=== PATIENT | male | born 1965 | race Caucasian/White ===

== ENCOUNTER 2024-09-22 11:35 | Inpatient (IN) | payer BC, SELFPAY ==
--- NOTE | 2024-09-22 11:53 | ED.GENADULT ---
HPI - General Adult General Chief complaint: Psychiatric Symptoms Stated complaint: Crisis Time Seen by Provider: 09/22/24 12:20 Source: patient Mode of arrival: ambulatory Limitations: no limitations History of Present Illness ED Provider: Ashley Diehl PA-C HPI narrative: Patient is a 59 year old assigned male at with a history of depression and HLD presenting to the emergency department today with increased depression and vague suicidal ideation. Patient states that he has been more depressed lately and has thought of killing himself but doesn't have a plan yet . Patient denies any dizziness, lightheadedness, abdominal pain, nausea, vomiting, fever, chills, blurry vision, double vision, loss of vision, chest pain, difficulty breathing, shortness of breath, back pain, night sweats, pain with urination, increased urinary frequency, increased urinary urgency, blood in his urine or stool, syncope or a near syncopal episode, recent trauma or falls, bowel incontinence, bladder incontinence, or any other complaints at this time. Relieving factors: none Exacerbating factors: none Associated symptoms: denies other symptoms Treatments prior to arrival: none Related Data Home Medications ?Medication ?Instructions ?Recorded ?Confirmed aspirin 81 mg chewable tablet 81 mg PO DAILY 09/22/24 09/22/24 atorvastatin 40 mg tablet 40 mg PO DAILY 09/22/24 09/22/24 clonazepam 0.5 mg tablet 0.5 mg PO BID 09/22/24 09/22/24 clopidogrel 75 mg tablet 75 mg PO DAILY 09/22/24 09/22/24 mirtazapine 15 mg tablet 15 mg PO DIRECTED 09/22/24 09/22/24 sertraline 100 mg tablet 100 mg PO DAILY 09/22/24 09/22/24 Allergies Allergy/AdvReac Type Severity Reaction Status Date / Time No Known Allergies Allergy Verified 09/22/24 11:56 Review of Systems Constitutional: Constitutional: Reports no additional constitutional complaints, Denies chills, Denies fever(s) and Denies night sweats Eyes: Eyes: Reports no additional eye complaints, Denies blurry vision, Denies change in vision, Denies diplopia, Denies eye discharge, Denies loss of vision and Denies eye pain ENT: Denies dizziness Cardiovascular: Cardiovascular: Reports no additional cardiovascular complaints, Denies chest pain, Denies lightheadedness, Denies Loss of Consciousness and Denies dyspnea Respiratory: Respiratory: Reports no additional respiratory complaints and Denies dyspnea Gastrointestinal: Gastrointestinal: Reports no additional gastrointestinal complaints, Denies abdominal pain, Denies melena, Denies hematochezia, Denies change in bowel habits and Denies change in stool character Genitourinary: Genitourinary: Reports no additional male genitourinary complaints, Denies hematuria, Denies oliguria, Denies difficulty urinating, Denies dysuria, Denies urinary frequency, Denies urinary hesitancy, Denies urinary incontinence and Denies urinary urgency Musculoskeletal: Musculoskeletal: Reports no additional musculoskeletal complaints, Denies numbness and Denies tingling Neurologic: Denies dizziness, Denies loss of vision, Denies numbness and Denies tingling Psychiatric: Psychiatric: Reports no additional psychiatric complaints, Reports depression, Denies homicidal ideation and Reports suicidal ideation Endocrine: Endocrine: Reports no additional endocrine complaints Hematologic/Lymphatic: Hematologic/Lymphatic: Reports no additional hematologic/lymphatic complaints Allergic/Immunologic: Allergic/Immunologic: Reports no additional allergic/immunologic complaints PMFSH Past Medical History Attestation statement: The following information was validated with the patient. Source: old records reviewed and nursing notes reviewed Social History Social History Smoked in Last 30 Days: No Use of substances other than those prescribed or required for medical reasons: Yes Substance Use Type: Marijuana Advance Directives: No Advance Directives Information Provided: Yes Do you have a plan to hurt others: No Plan Physical Exam ED Vital Signs: Vital Signs - 24 hr 09/22/24 11:54 09/22/24 12:24 09/22/24 14:15 Temperature 98 F 98.7 F 98.2 F Pulse Rate 87 77 77 Respiratory Rate 19 14 16 Blood Pressure 137/87 126/81 132/74 Pulse Oximetry 98 99 99 Oxygen Delivery Method Room Air Room Air Room Air BMI result Body Mass Index 23.7 Const General: cooperative, no acute distress, alert and awake Nutritional Appearance: well nourished Orientation/consciousness: patient oriented x3 Limitations: no limitations HENMT Head: Yes normal to inspection and Yes atraumatic Ears: hearing grossly normal bilaterally and external ears normal General nose exam: Normal external nose present, no nasal discharge noted and no epistaxis Face and sinus: Yes normal facial exam, No abrasion and No laceration Mouth: Normal oral and palatal mucosa present, no drooling and no muffled voice Eyes General: appearance normal, both eyes and all related structures Periorbital: periorbital findings normal Eyelids: Yes eyelids normal Conjunctivae: conjunctivae normal Pupils: Equal, round and reactive pupils present EOM: EOMs intact bilaterally Neck Neck: Yes normal visual inspection, Yes full ROM and Yes no lymphadenopathy Chest Chest palpation & inspection: normal inspection of the chest Resp Effort & Inspection: normal respiratory effort and able to speak in complete sentences GI Inspection: Yes normal to inspection Neuro General: patient oriented x3, moves all extremities and CN's II-XI intact bilaterally Cranial nerves: Yes Equal, round and reactive pupils present Cognition (Neuro): normal cognition Extrem General: Yes normal to inspection, Yes full ROM and Yes capillary refill normal Psych Appearance: grossly normal Mental Status: mental status grossly normal Affect: Sad affect present Attitude: Guarded attititude/behavior present Thought content: Suicidality present Course Course Course Narrative: RME, this is a rapid medical exam performed by Larry Mullen please refer to primary provider for complete H&P- 59 year old male with PMHx significant for previous CVA presents for evaluation of depression with suicidal ideation. Patient reports he has been dealing with a lot and is exhausted. He reports having had thoughts of ending his life. He reports he was hopeless and ?my days are just empty. He reports he went to seek outpatient help for partial hospitalization but ?I had a breakdown in front of them and they felt that I needed a higher level of care. Plan for medical clearance and care team consult Medical Decision Making Medical Decision Making MDM Narrative: Patient is a 59 year old assigned male at with a history of depression and HLD presenting to the emergency department today with increased depression and vague suicidal ideation. Patient's physical exam was as noted in the physical exam portion of this note. Patient's blood work was unremarkable. I explained my physical exam findings as well as all test results to the patient. I answered all questions asked by the patient. Patient was evaluated by the CARE team who recommended inpatient level of psychiatric care. Patient awaiting bed placement or psychiatric admission. Differential Diagnosis Differential Diagnoses: The differential diagnosis associated with the presentation includes Depression Vague SI Admission/Observation Consideration of admission/observation: Escalation of care including admission/observation considered Patient with either be transferred to an appropriate psychiatric facility or admitted here at [facility] for psychiatric inpatient level of care. Consult Healthcare Provider Management of the patient was discussed with: Behavioral Health Provider (spoke to the CARE team as noted in the MDM Rationale portion of this note. ) Lab Data [facility] Lab Attestation statement: I reviewed the patient's lab results. My interpretation of these results are in the MDM Rationale portion of this note. 09/22/24 12:11 09/22/24 12:11 Labs: Lab Results 09/22/24 09/22/24 Range/Units 12:11 12:25 WBC 7.4 (4.8-10.8) X10*3/uL RBC 4.78 (4.60-5.80) X10*6/uL Hgb 16.0 (14.0-18.0) g/dl Hct 43.7 (42.0-52.0) % MCV 91.4 (80.0-98.0) fL MCH 33.5 H (27.0-33.0) pg MCHC 36.6 H (31.0-36.0) g/dl RDW 11.9 (11.0-16.0) % Plt Count 189 (160-400) X10*3/uL MPV 11.0 (9.4-12.4) fL Immature Gran % (Auto) 0.3 (0.0-0.4) % Neut % (Auto) 77.7 H (45-73) % Lymph % (Auto) 14.2 L (20-40) % Rock % (Auto) 7.2 (2-11) % Eos % (Auto) 0.3 (0-4) % Baso % (Auto) 0.3 (0-2) % Lymph # (Auto) 1.1 L (1.2-4.9) X10*3/uL Rock # (Auto) 0.5 (0.1-1.2) X10*3/uL Eos # (Auto) 0.0 (0.0-0.4) X10*3/uL Baso # (Auto) 0.0 (0.0-0.2) X10*3/uL Abs Immat Gran (auto) 0.02 (0.00-0.03) X10*3/uL Absolute Neuts (auto) 5.8 (2.0-8.3) x10*3/uL Absolute Nucleated RBC 0.000 (0.0-0.012) X10*3/uL Nucleated RBC % (auto) 0.0 (0.0-0.2) /100WBC Sodium 140 (135-145) mmol/L Potassium 4.2 (3.3-5.1) mmol/L Chloride 107 (96-108) mmol/L Carbon Dioxide 24 (22-29) mmol/L Anion Gap 13 (12-20) BUN 16 (9-16) mg/dL Creatinine 0.86 (0.5-1.4) mg/dL Estim Creat Clear Calc 104.5 Estimated GFR > 60 Random Glucose 103 (60-115) mg/dL Calcium 9.6 (8.4-10.2) mg/dL Total Bilirubin 0.6 (0.0-1.0) mg/dL AST 26 (5-37) U/L ALT 56 H (0-40) U/L Alkaline Phosphatase 83 (39-117) U/L Total Protein 7.8 (6.5-8.0) g/dL Albumin 4.8 (3.5-5.0) g/dL Urine Color Yellow Urine Appearance Clear Urine pH 8.0 (5.0-9.0) Ur Specific [place] 1.020 (1.005-1.025) Urine Protein Negative (Neg-Trace) mg/dL Urine Glucose (UA) Negative (Negative) mg/dL Urine Ketones Negative (Negative) mg/dL Urine Blood Negative (Negative) Urine Nitrite Negative (Negative) Ur Leukocyte Esterase Negative (Negative) Urine RBC 0-2 (0-2) /HPF Urine WBC 0-5 (0-5) /HPF Ur Squamous Epith Cells 0-2 (0-2) /HPF Urine Bacteria None Seen (None Seen) Hyaline Casts 0-2 (0-2) /LPF Salicylates < 5.0 L (15-30) mg/dL Urine Opiates Screen Not Detected (Not Detect) Ur Buprenorphine Scrn Not Detected (Not Detect) ng/mL Ur Oxycodone Screen Not Detected (Not Detect) ng/mL Urine Methadone Screen Not Detected (Not Detect) ng/mL Urine Fentanyl Screen Not Detected (Not Detect) Acetaminophen < 3 (<30) mcg/mL Ur Barbiturates Screen Not Detected (Not Detect) Ur Phencyclidine Scrn Not Detected (Not Detect) Ur Amphetamines Screen Not Detected (Not Detect) U Benzodiazepines Scrn Not Detected (Not Detect) Urine Cocaine Screen Not Detected (Not Detect) U Marijuana (THC) Screen Not Detected (Not Detect) Ethyl Alcohol < 10 mg/dL Discharge Plan Discharge Clinical Impression: Depression Patient Disposition: Still a Patient Interventions: [place]-Suicide Risk Severity Scale Last Done: 09/22/24 12:13
[2024-09-22 11:54] VITALS: BP 137/87; PULSE 87; RESP 19; TEMP 36.6; O2SAT 98; BMI 23.7
[2024-09-22 12:15] LABS: MANUAL DIFF FLAG NO
[2024-09-22 12:18] LABS: Basophils Percent Auto 0.3 % (0-2); Eosinophils Percent Auto 0.3 % (0-4); Hematocrit 43.7 % (42.0-52.0); Imm Gran Abs Auto 0.02 X10*3/uL (0.00-0.03); Imm Gran Pct Auto 0.3 % (0.0-0.4); Lymphocytes Absolute Auto 1.1 X10*3/uL (1.2-4.9); Lymphocytes Percent Auto 14.2 % (20-40); Mean Corpuscular HGB Conc 36.6 g/dl (31.0-36.0); Mean Corpuscular Hemoglobin 33.5 pg (27.0-33.0); Mean Corpuscular Volume 91.4 fL (80.0-98.0); Monocytes Absolute Auto 0.5 X10*3/uL (0.1-1.2); Monocytes Percent Auto 7.2 % (2-11); Neutrophils Absolute Auto 5.8 x10*3/uL (2.0-8.3); Neutrophils Percent Auto 77.7 % (45-73); Platelet Count 189 X10*3/uL (160-400); Red Blood Count 4.78 X10*6/uL (4.60-5.80); Red Cell Distribution Width 11.9 % (11.0-16.0); White Blood Count 7.4 X10*3/uL (4.8-10.8)
[2024-09-22 12:24] VITALS: BP 126/81; PULSE 77; RESP 14; TEMP 37.1; O2SAT 99
--- NOTE | 2024-09-22 12:27 | PC.NURSE ---
Pt presents to ED with feelings of SI and depression for past few weeks getting worse, pt reporting feeling hopeless, does not have plan in place but reports he is thinking of one. Denies HI. Reporting he was a daily drinker, approx 12 beers a day, last drink approx 35 days ago, no hx of withdrawals/seizures. Alert and oriented, breathing even and unlabored, skin warm and dry. Pt denying pain. Changed over into safety clothing with security, belongings in valarie port floor, labeled. 1:1 sitter.
[2024-09-22 12:31] LABS: Appearance Urine Clear; Color Urine Yellow; Glucose Urine UA Negative (Negative); Leukocyte Esterase Urine Negative (Negative); Nitrite Urine Negative (Negative); Urine Blood Negative (Negative); Urine Ketones Negative (Negative); Urine Protein Negative (Neg-Trace)
[2024-09-22 12:32] LABS: Alanine Aminotransferase 56 U/L (0-40); Albumin Level 4.8 g/dL (3.5-5.0); Alkaline Phosphatase 83 U/L (39-117); Anion Gap 13 (12-20); Aspartate Amino Transferase 26 U/L (5-37); Bilirubin Total 0.6 mg/dL (0.0-1.0); Blood Urea Nitrogen 16 mg/dL (9-16); Calcium 9.6 mg/dL (8.4-10.2); Carbon Dioxide 24 mmol/L (22-29); Chloride 107 mmol/L (96-108); Creatinine Clr Calc Pharmacy 104.5; Estimated Glomerular Filt Rate > 60; Ethanol < 10 mg/dL; Glucose Random 103 mg/dL (60-115); Potassium 4.2 mmol/L (3.3-5.1); Sodium 140 mmol/L (135-145); Total Protein 7.8 g/dL (6.5-8.0)
[2024-09-22 12:36] LABS: Bacteria Urine None Seen (None Seen); Hyaline Casts Urine 0-2 /LPF (0-2); RBC Urine 0-2 /HPF (0-2); Squamous Epithelial Cell Urine 0-2 /HPF (0-2); WBC Urine 0-5 /HPF (0-5)
[2024-09-22 12:39] LABS: Amphetamine Screen Urine Not Detected (Not Detect); Barbiturates, Urine Not Detected (Not Detect); Benzodiazepines Screen Urine Not Detected (Not Detect); Buprenorphine Scr Not Detected (Not Detect); Cannabinoid Screen Urine Not Detected (Not Detect); Cocaine Screen Urine Not Detected (Not Detect); Fentanyl, urine Not Detected (Not Detect); Methadone Screen, Urine Not Detected (Not Detect); Opiate Screen Urine Not Detected (Not Detect); Oxycodone Screen Urine Not Detected (Not Detect); Phencyclidine Screen Urine Not Detected (Not Detect)
[2024-09-22 12:41] LABS: Acetaminophen LAB < 3 mcg/mL (<30); Salicylate < 5.0 mg/dL (15-30)
[2024-09-22 14:15] VITALS: BP 132/74; PULSE 77; RESP 16; TEMP 36.8; O2SAT 99
--- NOTE | 2024-09-22 14:18 | ECG_ITS ---
Test Reason : PSYCH CLEARANCE Blood Pressure : */* mmHG Vent. Rate : 66 BPM Atrial Rate : 66 BPM P-R Int : 198 ms QRS Dur : 112 ms QT Int : 410 ms P-R-T Axes : 42 42 45 degrees QTcB Int : 429 ms Normal sinus rhythm Nonspecific T wave abnormality Borderline ECG No previous ECGs available Referred By: Chelle Floyd Electronically Signed By: BRAYDEN MORTON
--- NOTE | 2024-09-22 14:27 | PC.NURSE ---
Med rec done by this RN using patient information and pharmacy.
--- NOTE | 2024-09-22 14:41 | MHC.CARE ---
Patient will be ADULT IPLOC. Section 12a placed in chart for safety.
--- NOTE | 2024-09-22 16:14 | PC.NURSE ---
pt reports frustrations with being here in the pod, particularly with being next to a rowdy patient. He reports that he feels that he does not understand the process of being here and feels anxious and unprepared. This RN validated his feelings, he is speaking with CARE team at this time
--- NOTE | 2024-09-22 17:30 | PHA.MEDREC ---
Pharmacy Consult ? Medication Reconciliation Pharmacy reviewed med rec done by nursing. Spoke with patient and he confirmed his medications. The patient stated he is not taking the Mirtazapine 15mg tab and stated he took 1/2 tab on the first day and had a bad reaction to it while he was sleeping and decided to stop taking it after that dose. He confirmed as well that his Sertraline got increased from 50mg to 100mg in the last week by his Dr. He confirmed he took all his medications yesterday morning before coming in.
--- NOTE | 2024-09-22 18:13 | PC.ADMIT ---
Pt arrived on the unit at 1716 from [facility]. Pt was walked over from [facility] where he stated he was unable to complete his entrance interview . Pt denies any psych admissions, reports not smoking for 9 years, no ETOH for 6 weeks. Pt reports increase in depression and anxiety lately that has led to his inability to function. Initially during admission pt was overwhelmed and having a hard time answering questions. He would state Well.. or You see.. and appear to be thinking about his answer, but the answer would never come. As pt became more comfortable on the unit he was able to provide more information. It appears pt was having PCP try to med manage, did not see improved mood and recently began working with a psychiatrist. Pt feels he is getting different messages from both about what meds he should be taking and wants someone to figure it out for him. Pt reports poor appetite lately as his anxiety makes him nauseous. Pt is excited to get this started . Pt is a CV.
[2024-09-22 19:48] VITALS: BP 142/85; PULSE 81; RESP 16; TEMP 36.9; O2SAT 98
[2024-09-22] MEDS: clonazePAM 0.5 MG TABLET PO (23:06)
[2024-09-23 07:54] LABS: Estimated Average Glucose 108 mg/dL; Hemoglobin A1C 134.5093 umol/L; Hemoglobin A1c % 5.4 % (<6.0)
[2024-09-23 08:00] VITALS: BP 137/84; PULSE 76; RESP 18; TEMP 36.9; O2SAT 98
[2024-09-23 08:09] LABS: Cholesterol 111 mg/dL (<200); HDL Cholesterol 44 mg/dL (>40); LDL Cholesterol Calculated 59 mg/dL (<100); Magnesium 2.4 mg/dL (1.6-2.6); Triglycerides 42 mg/dL (<150)
[2024-09-23] MEDS: Clopidogrel Bisulfate 75 MG TABLET PO (08:10)
[2024-09-23] MEDS: Sertraline HCL 100 MG TABLET PO (08:11)
[2024-09-23] MEDS: Atorvastatin Calcium 40 MG TABLET PO (08:11)
[2024-09-23] MEDS: Aspirin 81 MG TAB.CHEW PO (08:11)
[2024-09-23 08:25] LABS: Free T4 (Free Thyroxine) 1.08 ng/dL (0.71-1.85); Thyroid Stimulating Hormone 1.22 uIU/mL (0.32-4.0)
[2024-09-23 08:38] LABS: Folate 12.7 ng/mL (> or = 4.0); Vitamin B12 725 pg/mL (200-900)
--- NOTE | 2024-09-23 10:04 | P.HPPS_ITS ---
[facility] Date of Service: 09/23/24 Chief Complaint: Depression Sources of Information: patient interviewed, chart reviewed and crisis/core team assessment reviewed HPI Subjective Notes: Gonzalez Warning, Conditional Voluntary and 3 Day Narrative: Patient is a 59-year-old male with history of depression, SAD, alcohol use disorder, history of CVA, Peyronie's disease, chronic back pain who presents for worsening depression and anxiety in the face of multiple psychosocial stressors. Patient reports that in May this past election was when anxiety and depression started. Over the subsequent months, he found his anxiety and depression increasing exacerbated by the cold and dark season which is chronic for him. Compounding these issues are chronic Patient endorses increasing diminished interest in things, low energy, poor appetite and losing weight, trouble sleeping... Patient's anxiety also continued to worsen and he became constantly nauseous... Patient had never been on psychiatric medications before but was started on the antidepressants Zoloft titrated to 100 mg but not helpful; tried mirtazapine for 1 day but not helpful; given clonazepam but patient avoided it due to history of alcohol use. Over the past several weeks, patient's depression worsened and this past week he started thinking that life was not worth living, and though no plans or intent, started becoming desperately hopeless that he would be able to get better. Patient went to an intake for the partial program, expressed suicidal sentiment and was referred to inpatient admission. Patient denies any history of manic episodes or behaviors; history of [id number] bouts of depression, mostly sublinical; denies history of trauma; no AVH. No other history of suicidality. Patient has a long history of on and off alcohol abuse, drinking about 12 beers a day for few months and then being sober for few months; for the past few weeks he has only been drinking 4 beers a day. No other drug abuse history other than cannabis. 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 Lives in a condo by himself Has supportive brothers Substance History: History of alcoholism; will alternate between drink 12 beers a day for few months and then be sober for few months Trauma History: Denies Diagnostics Vital Signs (24Hr): Vital Signs - 24 hr 09/22/24 11:54 09/22/24 12:24 09/22/24 14:15 Temperature 98 F 98.7 F 98.2 F Pulse Rate 87 77 77 Respiratory Rate 19 14 16 Blood Pressure 137/87 126/81 132/74 Pulse Oximetry 98 99 99 Oxygen Delivery Method Room Air Room Air Room Air 09/22/24 19:48 09/23/24 08:00 Temperature 98.5 F 98.5 F Pulse Rate 81 76 Respiratory Rate 16 18 Blood Pressure 142/85 H 137/84 Pulse Oximetry 98 98 Oxygen Delivery Method Room Air Room Air BMI result Body Mass Index 23.7 Labs 09/22/24 12:11 09/22/24 12:11 Labs: Laboratory Results - last 48 hr 09/22/24 09/22/24 09/23/24 12:11 12:25 07:31 WBC 7.4 RBC 4.78 Hgb 16.0 Hct 43.7 MCV 91.4 MCH 33.5 H MCHC 36.6 H RDW 11.9 Plt Count 189 MPV 11.0 Immature Gran % (Auto) 0.3 Neut % (Auto) 77.7 H Lymph % (Auto) 14.2 L [place] % (Auto) 7.2 Eos % (Auto) 0.3 Baso % (Auto) 0.3 Lymph # (Auto) 1.1 L [place] # (Auto) 0.5 Eos # (Auto) 0.0 Baso # (Auto) 0.0 Abs Immat Gran (auto) 0.02 Absolute Neuts (auto) 5.8 Absolute Nucleated RBC 0.000 Nucleated RBC % (auto) 0.0 Sodium 140 Potassium 4.2 Chloride 107 Carbon Dioxide 24 Anion Gap 13 BUN 16 Creatinine 0.86 Estim Creat Clear Calc 104.5 Estimated GFR > 60 Random Glucose 103 Estimat Average Glucose 108 Hemoglobin A1c % 5.4 Calcium 9.6 Magnesium 2.4 Total Bilirubin 0.6 AST 26 ALT 56 H Alkaline Phosphatase 83 Total Protein 7.8 Albumin 4.8 Triglycerides 42 Cholesterol 111 LDL Cholesterol, Calc 59 HDL Cholesterol 44 Vitamin B12 725 Folate 12.7 TSH 1.22 Free T4 1.08 Urine Color Yellow Urine Appearance Clear Urine pH 8.0 Ur Specific [place] 1.020 Urine Protein Negative Urine Glucose (UA) Negative Urine Ketones Negative Urine Blood Negative Urine Nitrite Negative Ur Leukocyte Esterase Negative Urine RBC 0-2 Urine WBC 0-5 Ur Squamous Epith Cells 0-2 Urine Bacteria None Seen Hyaline Casts 0-2 Salicylates < 5.0 L Urine Opiates Screen Not Detected Ur Buprenorphine Scrn Not Detected Ur Oxycodone Screen Not Detected Urine Methadone Screen Not Detected Urine Fentanyl Screen Not Detected Acetaminophen < 3 Ur Barbiturates Screen Not Detected Ur Phencyclidine Scrn Not Detected Ur Amphetamines Screen Not Detected U Benzodiazepines Scrn Not Detected Urine Cocaine Screen Not Detected U Marijuana (THC) Screen Not Detected Ethyl Alcohol < 10 Meds/Allergies Meds Home Medications ?Medication ?Instructions ?Recorded ?Confirmed ?Type aspirin 81 mg chewable tablet 81 mg PO DAILY 09/22/24 09/22/24 History atorvastatin 40 mg tablet 40 mg PO DAILY 09/22/24 09/22/24 History clonazepam 0.5 mg tablet 0.5 mg PO BID 09/22/24 09/22/24 History clopidogrel 75 mg tablet 75 mg PO DAILY 09/22/24 09/22/24 History sertraline 100 mg tablet 100 mg PO DAILY 09/22/24 09/22/24 History Allergies Allergies Allergy/AdvReac Type Severity Reaction Status Date / Time No Known Allergies Allergy Verified 09/22/24 11:56 Mental Status Exam Mental Status Exam Narrative: Pt is alert and oriented; behavior is cooperative, polite and calm; patient is not in distress; dressed in casual attire with unkempt hair but adequate hygiene; mood is described as anxious... Depressed and affect congruent, downcast; eye contact appropriate; Speech is normal rate, volume and prosody and not pressured; psychomotor retardation present; thought process is organized and goal directed; Thought content is on dealing with hopeless feelings, tx; otherwise pertinent to relevant topics and without any delusional content, paranoid ideations or grandiosity; denies any SI/HI. Denies AVH and there is no evidence of perceptual disturbance. Patients insight and judgment impaired Assessment & Plan Assessment & Plan (1) MDD (major depressive disorder), recurrent severe, without psychosis: Status: Acute Code(s): F33.2 - Major depressive disorder, recurrent severe without psychotic features (2) Anxiety: Status: Acute Code(s): F41.9 - Anxiety disorder, unspecified (3) Peyronie's disease: Status: Acute Code(s): N48.6 - Induration penis plastica Plan Patient is a 59-year-old male with history of depression, SAD, alcohol use disorder, history of CVA, Peyronie's disease, chronic back pain who presents for worsening depression and anxiety in the face of multiple psychosocial stressors. Patient reports that in May this past election was when anxiety and depression started. Over the subsequent months, he found his anxiety and depression increasing exacerbated by the cold and dark season which is chronic for him. Compounding these issues are chronic Patient endorses increasing diminished interest in things, low energy, poor appetite and losing weight, trouble sleeping... Patient's anxiety also continued to worsen and he became constantly nauseous... Patient had never been on psychiatric medications before but was started on the antidepressants Zoloft titrated to 100 mg but not helpful; tried mirtazapine for 1 day but not helpful; given clonazepam but patient avoided it due to history of alcohol use. Over the past several weeks, patient's depression worsened and this past week he started thinking that life was not worth living, and though no plans or intent, started becoming desperately hopeless that he would be able to get better. Patient went to an intake for the partial program, expressed suicidal sentiment and was referred to inpatient admission. Patient denies any history of manic episodes or behaviors; history of [id number] bouts of depression, mostly sublinical; denies history of trauma; no AVH. No other history of suicidality. Patient has a long history of on and off alcohol abuse, drinking about 12 beers a day for few months and then being sober for few months; for the past few weeks he has only been drinking 4 beers a day. No other drug abuse history other than cannabis. Formulation/clinical reason: Patient has history of moderate MDD and SAD; likely history of alcohol abuse has masked symptoms of both depression and anxiety. Regarding medications, financial writer reviewed risks/side effects of various medications which patient understood and agreed to try. Patient has had no benefit from Zoloft 100 mg; he agrees to increase it to 150 and if still no benefit will try different medication. Patient agrees to doxepin q.h.s. for ongoing insomnia; discussed trazodone as an option however patient has Peyronie's disease and while that does not place him at increased risk for priapism, should the rare side effect of priapism occur it could worsen pre-existing Peyronie's disease; patient understands risks and will consider whether not to try it. Also discussed clonidine for anxiety; he agrees to discontinue clonazepam for now as he has hardly been taking the past several weeks. Plan: CV Q 15 minute checks Increase Zoloft to 150 mg daily Start doxepin 20 mg q.h.s. for insomnia and help with anxiety/depression Start clonidine 0.1 mg q.h.s. for insomnia Add clonidine 0.1 mg q.4 p.r.n. for moderate anxiety Discontinue clonazepam; patient would like to avoid benzodiazepines Patient educated on: diagnosis, medication risk/benefits, substance abuse, therapeutic strategies and medical condition Informed Consent: understands Reason for continued inpatient stay Substantial Risk for: rapid decompensation Statement Statement: I have reviewed the history and physical and performed a pertinent examination on my patient. No changes have occurred unless specified. If the History and Physical was not performed prior to admission, the Hospitalist's service will be consulted for completing the admission physical. Time Spent With Patient Time: Total time managing care of this patient today ____ minutes.
[2024-09-23 10:29] VITALS: BMI 23.7
[2024-09-23 15:19] VITALS: BP 123/84
[2024-09-23] MEDS: cloNIDine HCL 0.1 MG TABLET PO (15:19)
[2024-09-23 20:00] VITALS: BP 107/71; PULSE 81; RESP 16; TEMP 37.1; O2SAT 97
[2024-09-23 22:18] VITALS: BP 139/88; PULSE 92
[2024-09-23] MEDS: Doxepin HCl 10 MG CAPSULE 20 MG PO (22:46)
[2024-09-24 07:55] VITALS: BP 134/88; PULSE 80; RESP 16; TEMP 37.1; O2SAT 99
[2024-09-24] MEDS: Sertraline HCL 50 MG TABLET 150 MG PO (08:49)
[2024-09-24] MEDS: Clopidogrel Bisulfate 75 MG TABLET PO (08:50)
[2024-09-24] MEDS: Atorvastatin Calcium 40 MG TABLET PO (08:50)
[2024-09-24] MEDS: Aspirin 81 MG TAB.CHEW PO (08:50)
--- NOTE | 2024-09-24 10:01 | HO.PSYCHPN ---
Subjective Subjective Date of Service: 09/24/24 Reason For Visit: Depression Interim History: met with patient; discussed with team Anxiety remains, but pt feels maybe less intense...Clonidine also seemed to help as a Prn. Continues with intermittent hopeless thoughts, asking are the problems insurmountable? but pt talking about it....working on trying to not get overwhelmed... regarding sleep, feels Doxepin seemed helpful and slept better if quiet environment, may not have needed help with sleep. Mental Status Exam Mental Status Exam Narrative: Pt is alert and oriented; behavior is cooperative, polite and calm; patient is not in distress; dressed in casual attire with unkempt hair but adequate hygiene; mood is described as anxious....less intense and affect congruent, downcast; eye contact appropriate; Speech is normal rate, volume and prosody and not pressured; psychomotor retardation present; thought process is organized and goal directed; Thought content is on dealing with hopeless feelings, tx; otherwise pertinent to relevant topics and without any delusional content, paranoid ideations or grandiosity; denies any SI/HI. Denies AVH and there is no evidence of perceptual disturbance. Patients insight and judgment impaired Diagnostics Vital Signs (24Hr): Vital Signs - 24 hr 09/23/24 15:19 09/23/24 20:00 09/23/24 22:18 Temperature 98.7 F Pulse Rate 81 92 Respiratory Rate 16 Blood Pressure 123/84 107/71 139/88 Pulse Oximetry 97 Oxygen Delivery Method Room Air 09/24/24 07:55 Temperature 98.7 F Pulse Rate 80 Respiratory Rate 16 Blood Pressure 134/88 Pulse Oximetry 99 Oxygen Delivery Method Room Air BMI result Body Mass Index 23.7 Labs 09/22/24 12:11 09/22/24 12:11 Labs: Laboratory Results - last 48 hr 09/22/24 09/22/24 09/23/24 12:11 12: 07:31 WBC 7.4 RBC 4.78 Hgb 16.0 Hct 43.7 MCV 91.4 MCH 33.5 H MCHC 36.6 H RDW 11.9 Plt Count 189 MPV 11.0 Immature Gran % (Auto) 0.3 Neut % (Auto) 77.7 H Lymph % (Auto) 14.2 L [place] % (Auto) 7.2 Eos % (Auto) 0.3 Baso % (Auto) 0.3 Lymph # (Auto) 1.1 L [place] # (Auto) 0.5 Eos # (Auto) 0.0 Baso # (Auto) 0.0 Abs Immat Gran (auto) 0.02 Absolute Neuts (auto) 5.8 Absolute Nucleated RBC 0.000 Nucleated RBC % (auto) 0.0 Sodium 140 Potassium 4.2 Chloride 107 Carbon Dioxide 24 Anion Gap 13 BUN 16 Creatinine 0.86 Estim Creat Clear Calc 104.5 Estimated GFR > 60 Random Glucose 103 Estimat Average Glucose 108 Hemoglobin A1c % 5.4 Calcium 9.6 Magnesium 2.4 Total Bilirubin 0.6 AST 26 ALT 56 H Alkaline Phosphatase 83 Total Protein 7.8 Albumin 4.8 Triglycerides 42 Cholesterol 111 LDL Cholesterol, Calc 59 HDL Cholesterol 44 Vitamin B12 725 Folate 12.7 TSH 1.22 Free T4 1.08 Urine Color Yellow Urine Appearance Clear Urine pH 8.0 Ur Specific [place] 1.020 Urine Protein Negative Urine Glucose (UA) Negative Urine Ketones Negative Urine Blood Negative Urine Nitrite Negative Ur Leukocyte Esterase Negative Urine RBC 0-2 Urine WBC 0-5 Ur Squamous Epith Cells 0-2 Urine Bacteria None Seen Hyaline Casts 0-2 Salicylates < 5.0 L Urine Opiates Screen Not Detected Ur Buprenorphine Scrn Not Detected Ur Oxycodone Screen Not Detected Urine Methadone Screen Not Detected Urine Fentanyl Screen Not Detected Acetaminophen < 3 Ur Barbiturates Screen Not Detected Ur Phencyclidine Scrn Not Detected Ur Amphetamines Screen Not Detected U Benzodiazepines Scrn Not Detected Urine Cocaine Screen Not Detected U Marijuana (THC) Screen Not Detected Ethyl Alcohol < 10 Medications Medications Current Medications Acetaminophen (Acetaminophen 325 Mg Tablet) 650 mg PO Q6H PRN PRN Reason: Headache/Pain, Scale 1-10 Al Hydroxide/Mg Hydroxide (Magnesium Hydrox/Alum Hydrox 30 Ml Oral.Susp) 30 ml PO Q6H PRN PRN Reason: Heartburn/Nausea Aspirin (Aspirin 81 Mg Tab.Chew) 81 mg PO DAILY [facility] Last Admin: 09/24/24 08:50 Dose: 81 mg Atorvastatin Calcium (Atorvastatin Calcium 40 Mg Tablet) 40 mg PO DAILY [facility] Last Admin: 09/24/24 08:50 Dose: 40 mg Clonidine HCl (Clonidine Hcl 0.1 Mg Tablet) 0.1 mg PO Q4H PRN; Protocol PRN Reason: moderate anxiety Clonidine HCl (Clonidine Hcl 0.1 Mg Tablet) 0.1 mg PO BEDTIME [facility]; Protocol Last Admin: 09/24/24 06:25 Dose: Not Given Clopidogrel Bisulfate (Clopidogrel Bisulfate 75 Mg Tablet) 75 mg PO DAILY [facility] Last Admin: 09/24/24 08:50 Dose: 75 mg Doxepin HCl (Doxepin Hcl 10 Mg Capsule) 20 mg PO BEDTIME [facility] Last Admin: 09/23/24 22:46 Dose: 20 mg Magnesium Hydroxide (Milk Of Magnesia 30 Ml Oral.Susp) 30 ml PO DAILY PRN PRN Reason: Constipation Nicotine Polacrilex (Nicotine Polacrilex 2 Mg Gum) 4 mg BUCCAL Q2H PRN PRN Reason: Nicotine Cravings Ondansetron HCl (Ondansetron Odt 4 Mg Tab.Rapdis) 4 mg TRANSLINGU RQ6H PRN PRN Reason: Nausea Sertraline HCl (Sertraline Hcl 50 Mg Tablet) 150 mg PO DAILY [facility] Last Admin: 09/24/24 08:49 Dose: 150 mg Trazodone HCl (Trazodone Hcl 50 Mg Tablet) 50 mg PO BEDTIME MRX1 PRN PRN Reason: Insomnia Allergies Allergies Allergy/AdvReac Type Severity Reaction Status Date / Time No Known Allergies Allergy Verified 09/22/24 11:56 Assessment & Plan Assessment & Plan (1) MDD (major depressive disorder), recurrent severe, without psychosis: Status: Acute Code(s): F33.2 - Major depressive disorder, recurrent severe without psychotic features (2) Anxiety: Status: Acute Code(s): F41.9 - Anxiety disorder, unspecified (3) Peyronie's disease: Status: Acute Code(s): N48.6 - Induration penis plastica Plan Patient is a 59-year-old male with history of depression, SAD, alcohol use disorder, history of CVA, Peyronie's disease, chronic back pain who presents for worsening depression and anxiety in the face of multiple psychosocial stressors. Patient reports that in May this past election was when anxiety and depression started. Over the subsequent months, he found his anxiety and depression increasing exacerbated by the cold and dark season which is chronic for him. Compounding these issues are chronic Patient endorses increasing diminished interest in things, low energy, poor appetite and losing weight, trouble sleeping... Patient's anxiety also continued to worsen and he became constantly nauseous... Patient had never been on psychiatric medications before but was started on the antidepressants Zoloft titrated to 100 mg but not helpful; tried mirtazapine for 1 day but not helpful; given clonazepam but patient avoided it due to history of alcohol use. Over the past several weeks, patient's depression worsened and this past week he started thinking that life was not worth living, and though no plans or intent, started becoming desperately hopeless that he would be able to get better. Patient went to an intake for the partial program, expressed suicidal sentiment and was referred to inpatient admission. Patient denies any history of manic episodes or behaviors; history of [id number] bouts of depression, mostly sublinical; denies history of trauma; no AVH. No other history of suicidality. Patient has a long history of on and off alcohol abuse, drinking about 12 beers a day for few months and then being sober for few months; for the past few weeks he has only been drinking 4 beers a day. No other drug abuse history other than cannabis. Formulation/clinical reason: Patient has history of moderate MDD and SAD; likely history of alcohol abuse has masked symptoms of both depression and anxiety. Regarding medications, data analyst report writer reviewed risks/side effects of various medications which patient understood and agreed to try. Patient has had no benefit from Zoloft 100 mg; he agrees to increase it to 150 and if still no benefit will try different medication. Patient agrees to doxepin q.h.s. for ongoing insomnia; discussed trazodone as an option however patient has Peyronie's disease and while that does not place him at increased risk for priapism, should the rare side effect of priapism occur it could worsen pre-existing Peyronie's disease; patient understands risks and will consider whether not to try it. Also discussed clonidine for anxiety; he agrees to discontinue clonazepam for now as he has hardly been taking the past several weeks. Hospital course: 09/24 Anxiety remains, but pt feels maybe less intense..Clonidine also seemed to help as a Prn. Continues with intermittent hopeless thoughts, asking are the problems insurmountable? but pt talking about it....working on trying to not get overwhelmed... -regarding sleep, feels Doxepin seemed helpful and slept better; wonders if quiet environment, may not have needed help with sleep aide, however will continue and understands Doxepin also helps with anxiety/depression. Plan: CV Q 15 minute checks Continue Zoloft to 150 mg daily Continue doxepin 20 mg q.h.s. for insomnia and help with anxiety/depression Continue clonidine 0.1 mg q.h.s. for insomnia Continue clonidine 0.1 mg q.4 p.r.n. for moderate anxiety Discontinue clonazepam; patient would like to avoid benzodiazepines Substance abuse treatment and risks discussed with patient who at this time patient declines MAT or help with outpt treatment options including programs; instead patient is choosing to work out sobriety on own (and has been cutting down on his own). Patient educated on: diagnosis, medication risk/benefits and substance abuse Informed Consent: understands Reason for continued inpatient stay Substantial Risk for: rapid decompensation Time Spent With Patient Time: Total time managing care of this patient today ____ minutes.
[2024-09-24 20:00] VITALS: BP 127/75; PULSE 76; TEMP 36.9; O2SAT 99
--- NOTE | 2024-09-24 22:11 | PC.NURSE ---
Patient has declined to take his medications at this time; he states he will take them closer to my bedtime.
[2024-09-24] MEDS: Doxepin HCl 10 MG CAPSULE 20 MG PO (22:15)
[2024-09-25 08:00] VITALS: BP 122/77; PULSE 85; RESP 18; TEMP 37.1; O2SAT 99
[2024-09-25] MEDS: Sertraline HCL 50 MG TABLET 150 MG PO (08:38)
[2024-09-25] MEDS: Atorvastatin Calcium 40 MG TABLET PO (08:38)
[2024-09-25] MEDS: Clopidogrel Bisulfate 75 MG TABLET PO (08:38)
[2024-09-25] MEDS: Aspirin 81 MG TAB.CHEW PO (08:38)
--- NOTE | 2024-09-25 08:48 | P.PNPSI_ITS ---
Subjective Subjective Date of Service: 09/25/24 Reason For Visit: Depression Subjective Notes: Conditional Voluntary Healthcare Proxy: No Guardianship: No Medical Problems Affecting Mental Status: No Interim History: 59 yo restless male pacing halls- unsure what to do with how he is feeling, somewhat disorganized thoughts, ruminative - obsessive- discussed add on atypical anti-psychotic for this with depression- Medication Compliance: Yes Side effects from medications: No Attending Groups: Intermittent Review of Systems Acute medical concerns: No Medical Review of Systems: unchanged Mental Status Exam Mental Status Exam Narrative: some feelings of hopelessness discussed no si today Patient Appearance: Unkempt Patient Orientation: Person, Place, Time and Situation Level of Consciousness: Awake Patient Behavior: Appropriate, Restless and Poor Eye Contact Mood Description: Anxious and Apprehensive Affect Description: Blunted Patient Cognition Impaired: No Ability to Follow Directions: Fair Speech Pattern: Clear Hallucinations: None Delusions: Not Present Thought Process: Distracted and Rumination Thought Content: positive for Obsessional Thoughts, positive for Perseveration and positive for Disorganized (mildly) Depressive Symptoms: Increased Anxiety and Difficulty Concentrating Abnormal Motor Activity Signs and Symptoms: Restlessness Judgement: Fair Diagnostics Vital Signs (24Hr): Vital Signs - 24 hr 09/24/24 20:00 09/25/24 08:00 Temperature 98.4 F 98.7 F Pulse Rate 76 85 Respiratory Rate 18 Blood Pressure 127/75 122/77 Pulse Oximetry 99 99 Oxygen Delivery Method Room Air Room Air BMI result Body Mass Index 23.7 Labs 09/22/24 12:11 09/22/24 12:11 Medications Medications Current Medications Acetaminophen (Acetaminophen 325 Mg Tablet) 650 mg PO Q6H PRN PRN Reason: Headache/Pain, Scale 1-10 Al Hydroxide/Mg Hydroxide (Magnesium Hydrox/Alum Hydrox 30 Ml Oral.Susp) 30 ml PO Q6H PRN PRN Reason: Heartburn/Nausea Aspirin (Aspirin 81 Mg Tab.Chew) 81 mg PO DAILY BREANN Last Admin: 09/25/24 08:38 Dose: 81 mg Atorvastatin Calcium (Atorvastatin Calcium 40 Mg Tablet) 40 mg PO DAILY BREANN Last Admin: 09/25/24 08:38 Dose: 40 mg Clonidine HCl (Clonidine Hcl 0.1 Mg Tablet) 0.1 mg PO Q4H PRN; Protocol PRN Reason: moderate anxiety Clonidine HCl (Clonidine Hcl 0.1 Mg Tablet) 0.1 mg PO BEDTIME [facility]; Protocol Last Admin: 09/24/24 22:15 Dose: Not Given Clopidogrel Bisulfate (Clopidogrel Bisulfate 75 Mg Tablet) 75 mg PO DAILY [facility] Last Admin: 09/25/24 08:38 Dose: 75 mg Doxepin HCl (Doxepin Hcl 10 Mg Capsule) 20 mg PO BEDTIME [facility] Last Admin: 09/24/24 22:15 Dose: 20 mg Magnesium Hydroxide (Milk Of Magnesia 30 Ml Oral.Susp) 30 ml PO DAILY PRN PRN Reason: Constipation Nicotine Polacrilex (Nicotine Polacrilex 2 Mg Gum) 4 mg BUCCAL Q2H PRN PRN Reason: Nicotine Cravings Ondansetron HCl (Ondansetron Odt 4 Mg Tab.Rapdis) 4 mg TRANSLINGU RQ6H PRN PRN Reason: Nausea Sertraline HCl (Sertraline Hcl 50 Mg Tablet) 150 mg PO DAILY [facility] Last Admin: 09/25/24 08:38 Dose: 150 mg Trazodone HCl (Trazodone Hcl 50 Mg Tablet) 50 mg PO BEDTIME MRX1 PRN PRN Reason: Insomnia Allergies Allergies Allergy/AdvReac Type Severity Reaction Status Date / Time No Known Allergies Allergy Verified 09/22/24 11:56 Assessment & Plan Assessment & Plan (1) MDD (major depressive disorder), recurrent severe, without psychosis: Status: Acute Code(s): F33.2 - Major depressive disorder, recurrent severe without psychotic features (2) Anxiety: Status: Acute Code(s): F41.9 - Anxiety disorder, unspecified (3) Peyronie's disease: Status: Acute Code(s): N48.6 - Induration penis plastica Plan Patient is a 59-year-old male with history of depression, SAD, alcohol use disorder, history of CVA, Peyronie's disease, chronic back pain who presents for worsening depression and anxiety in the face of multiple psychosocial stressors. Patient reports that in May this past election was when anxiety and depression started. Over the subsequent months, he found his anxiety and depression increasing exacerbated by the cold and dark season which is chronic for him. Compounding these issues are chronic Patient endorses increasing diminished interest in things, low energy, poor appetite and losing weight, trouble sleeping... Patient's anxiety also continued to worsen and he became constantly nauseous... Patient had never been on psychiatric medications before but was started on the antidepressants Zoloft titrated to 100 mg but not helpful; tried mirtazapine for 1 day but not helpful; given clonazepam but patient avoided it due to history of alcohol use. Over the past several weeks, patient's depression worsened and this past week he started thinking that life was not worth living, and though no plans or intent, started becoming desperately hopeless that he would be able to get better. Patient went to an intake for the partial program, expressed suicidal sentiment and was referred to inpatient admission. Patient denies any history of manic episodes or behaviors; history of [id number] bouts of depression, mostly sublinical; denies history of trauma; no AVH. No other history of suicidality. Patient has a long history of on and off alcohol abuse, drinking about 12 beers a day for few months and then being sober for few months; for the past few weeks he has only been drinking 4 beers a day. No other drug abuse history other than cannabis. Formulation/clinical reason: Patient has history of moderate MDD and SAD; likely history of alcohol abuse has masked symptoms of both depression and anxiety. 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 Patient has had no benefit from Zoloft 100 mg; he agrees to increase it to 150 and if still no benefit will try different medication. Patient agrees to doxepin q.h.s. for ongoing insomnia; discussed trazodone as an option however patient has Peyronie's disease and while that does not place him at increased risk for priapism, should the rare side effect of priapism occur it could worsen pre-existing Peyronie's disease; patient understands risks and will consider whether not to try it. Also discussed clonidine for anxiety; he agrees to discontinue clonazepam for now as he has hardly been taking the past several weeks. Hospital course: 09/24 Anxiety remains, but pt feels maybe less intense..Clonidine also seemed to help as a Prn. Continues with intermittent hopeless thoughts, asking are the problems insurmountable? but pt talking about it....working on trying to not get overwhelmed... -regarding sleep, feels Doxepin seemed helpful and slept better; wonders if quiet environment, may not have needed help with sleep aide, however will continue and understands Doxepin also helps with anxiety/depression. Plan: CV Q 15 minute checks Continue Zoloft to 150 mg daily Continue doxepin 20 mg q.h.s. for insomnia and help with anxiety/depression Continue clonidine 0.1 mg q.h.s. for insomnia Continue clonidine 0.1 mg q.4 p.r.n. for moderate anxiety Discontinue clonazepam; patient would like to avoid benzodiazepines Substance abuse treatment and risks discussed with patient who at this time patient declines MAT or help with outpt treatment options including programs; instead patient is choosing to work out sobriety on own (and has been cutting down on his own). 09/25/24 discussed adjunctive abilify for rumination/depression add on - patient given print out- Patient educated on: diagnosis and medication risk/benefits Informed Consent: understands Reason for continued inpatient stay Substantial Risk for: rapid decompensation Time Spent With Patient Time: Total time managing care of this patient today ____ minutes.
[2024-09-25 13:06] VITALS: BP 125/82
[2024-09-25] MEDS: cloNIDine HCL 0.1 MG TABLET PO (13:06)
[2024-09-25 19:50] VITALS: BP 102/71; PULSE 88; TEMP 36.9; O2SAT 98
[2024-09-25] MEDS: Doxepin HCl 10 MG CAPSULE 20 MG PO (21:15)
[2024-09-25] MEDS: ARIPiprazole 2 MG TABLET PO (21:16)
[2024-09-26 08:35] VITALS: BP 128/82; PULSE 72; RESP 18; TEMP 36.7; O2SAT 98
[2024-09-26] MEDS: Aspirin 81 MG TAB.CHEW PO (08:36)
[2024-09-26] MEDS: Clopidogrel Bisulfate 75 MG TABLET PO (08:36)
[2024-09-26] MEDS: Atorvastatin Calcium 40 MG TABLET PO (08:36)
[2024-09-26] MEDS: Sertraline HCL 50 MG TABLET 150 MG PO (08:36)
--- NOTE | 2024-09-26 12:02 | HO.PSYCHPN ---
Subjective Subjective Date of Service: 09/26/24 Reason For Visit: Depression Subjective Notes: Conditional Voluntary Healthcare Proxy: No Guardianship: No Medical Problems Affecting Mental Status: No Interim History: Nursing reports patient con complaints for her this am, but then when saw me ruminated quite a bit- about meds - and clonidine prn and feeling that ambient sound of electric was too organzied and a bit off- I am wondering if we should dc doxepin- but I know that was dr. Guadarrama's plan so maybe we should just hold off on clonidine which pt is xs ambivalent about. Medication Compliance: Yes Side effects from medications: Yes (more sensitive to sounds? ) Attending Groups: Yes Review of Systems Acute medical concerns: No Medical Review of Systems: changed (as described above ) Mental Status Exam Mental Status Exam Patient Appearance: Unkempt Patient Orientation: Person, Place, Time and Situation Level of Consciousness: Awake Patient Behavior: Anxious Mood Description: Anxious Affect Description: Apprehensive Patient Cognition Impaired: No Ability to Follow Directions: Fair Speech Pattern: Clear Hallucinations: None Thought Process: Rumination Thought Content: positive for Obsessional Thoughts Depressive Symptoms: Increased Anxiety (ongoing) Abnormal Motor Activity Signs and Symptoms: Restlessness Judgement: Fair Diagnostics Vital Signs (24Hr): Vital Signs - 24 hr 09/25/24 13:06 09/25/24 19:50 09/26/24 08:35 Temperature 98.5 F 98.1 F Pulse Rate 88 72 Respiratory Rate 18 Blood Pressure 125/82 102/71 128/82 Pulse Oximetry 98 98 Oxygen Delivery Method Room Air Room Air BMI result Body Mass Index 23.7 Labs 09/22/24 12:11 09/22/24 12:11 Medications Medications Current Medications Acetaminophen (Acetaminophen 325 Mg Tablet) 650 mg PO Q6H PRN PRN Reason: Headache/Pain, Scale 1-10 Al Hydroxide/Mg Hydroxide (Magnesium Hydrox/Alum Hydrox 30 Ml Oral.Susp) 30 ml PO Q6H PRN PRN Reason: Heartburn/Nausea Aripiprazole (Aripiprazole 2 Mg Tablet) 2 mg PO BEDTIME [facility] Last Admin: 09/25/24 21:16 Dose: 2 mg Aspirin (Aspirin 81 Mg Tab.Chew) 81 mg PO DAILY [facility] Last Admin: 09/26/24 08:36 Dose: 81 mg Atorvastatin Calcium (Atorvastatin Calcium 40 Mg Tablet) 40 mg PO DAILY [facility] Last Admin: 09/26/24 08:36 Dose: 40 mg Clonidine HCl (Clonidine Hcl 0.1 Mg Tablet) 0.1 mg PO Q4H PRN; Protocol PRN Reason: moderate anxiety Last Admin: 09/25/24 13:06 Dose: 0.1 mg Clonidine HCl (Clonidine Hcl 0.1 Mg Tablet) 0.1 mg PO BEDTIME BREANN; Protocol Last Admin: 09/25/24 21:19 Dose: Not Given Clopidogrel Bisulfate (Clopidogrel Bisulfate 75 Mg Tablet) 75 mg PO DAILY [facility] Last Admin: 09/26/24 08:36 Dose: 75 mg Doxepin HCl (Doxepin Hcl 10 Mg Capsule) 20 mg PO BEDTIME BREANN Last Admin: 09/25/24 21:15 Dose: 20 mg Hydroxyzine HCl (Hydroxyzine Hcl 10 Mg Tablet) 10 mg PO Q6H PRN PRN Reason: anxiety/restlessness Magnesium Hydroxide (Milk Of Magnesia 30 Ml Oral.Susp) 30 ml PO DAILY PRN PRN Reason: Constipation Nicotine Polacrilex (Nicotine Polacrilex 2 Mg Gum) 4 mg BUCCAL Q2H PRN PRN Reason: Nicotine Cravings Ondansetron HCl (Ondansetron Odt 4 Mg Tab.Rapdis) 4 mg TRANSLINGU RQ6H PRN PRN Reason: Nausea Sertraline HCl (Sertraline Hcl 50 Mg Tablet) 150 mg PO DAILY [facility] Last Admin: 09/26/24 08:36 Dose: 150 mg Trazodone HCl (Trazodone Hcl 50 Mg Tablet) 50 mg PO BEDTIME MRX1 PRN PRN Reason: Insomnia Allergies Allergies Allergy/AdvReac Type Severity Reaction Status Date / Time No Known Allergies Allergy Verified 09/22/24 11:56 Assessment & Plan Assessment & Plan (1) MDD (major depressive disorder), recurrent severe, without psychosis: Status: Acute Code(s): F33.2 - Major depressive disorder, recurrent severe without psychotic features (2) Anxiety: Status: Acute Code(s): F41.9 - Anxiety disorder, unspecified (3) Peyronie's disease: Status: Acute Code(s): N48.6 - Induration penis plastica Plan Patient is a 59-year-old male with history of depression, SAD, alcohol use disorder, history of CVA, Peyronie's disease, chronic back pain who presents for worsening depression and anxiety in the face of multiple psychosocial stressors. Patient reports that in May this past election was when anxiety and depression started. Over the subsequent months, he found his anxiety and depression increasing exacerbated by the cold and dark season which is chronic for him. Compounding these issues are chronic Patient endorses increasing diminished interest in things, low energy, poor appetite and losing weight, trouble sleeping... Patient's anxiety also continued to worsen and he became constantly nauseous... Patient had never been on psychiatric medications before but was started on the antidepressants Zoloft titrated to 100 mg but not helpful; tried mirtazapine for 1 day but not helpful; given clonazepam but patient avoided it due to history of alcohol use. Over the past several weeks, patient's depression worsened and this past week he started thinking that life was not worth living, and though no plans or intent, started becoming desperately hopeless that he would be able to get better. Patient went to an intake for the partial program, expressed suicidal sentiment and was referred to inpatient admission. Patient denies any history of manic episodes or behaviors; history of [id number] bouts of depression, mostly sublinical; denies history of trauma; no AVH. No other history of suicidality. Patient has a long history of on and off alcohol abuse, drinking about 12 beers a day for few months and then being sober for few months; for the past few weeks he has only been drinking 4 beers a day. No other drug abuse history other than cannabis. Formulation/clinical reason: Patient has history of moderate MDD and SAD; likely history of alcohol abuse has masked symptoms of both depression and anxiety. 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 Patient has had no benefit from Zoloft 100 mg; he agrees to increase it to 150 and if still no benefit will try different medication. Patient agrees to doxepin q.h.s. for ongoing insomnia; discussed trazodone as an option however patient has Peyronie's disease and while that does not place him at increased risk for priapism, should the rare side effect of priapism occur it could worsen pre-existing Peyronie's disease; patient understands risks and will consider whether not to try it. Also discussed clonidine for anxiety; he agrees to discontinue clonazepam for now as he has hardly been taking the past several weeks. Hospital course: 09/24 Anxiety remains, but pt feels maybe less intense..Clonidine also seemed to help as a Prn. Continues with intermittent hopeless thoughts, asking are the problems insurmountable? but pt talking about it....working on trying to not get overwhelmed... -regarding sleep, feels Doxepin seemed helpful and slept better; wonders if quiet environment, may not have needed help with sleep aide, however will continue and understands Doxepin also helps with anxiety/depression. Plan: CV Q 15 minute checks Continue Zoloft to 150 mg daily Continue doxepin 20 mg q.h.s. for insomnia and help with anxiety/depression Continue clonidine 0.1 mg q.h.s. for insomnia Continue clonidine 0.1 mg q.4 p.r.n. for moderate anxiety Discontinue clonazepam; patient would like to avoid benzodiazepines Substance abuse treatment and risks discussed with patient who at this time patient declines MAT or help with outpt treatment options including programs; instead patient is choosing to work out sobriety on own (and has been cutting down on his own). 09/25/24 discussed adjunctive abilify for rumination/depression add on - patient given print out- 09/26 more organized tp and anxiety down today- but odd s/e of trouble hearing ambient electric as organized radio sound? - - provider will dc clonidine- but continue doxepin and abilify...and let dr weeks decide on forward course Patient educated on: medication risk/benefits Informed Consent: understands Reason for continued inpatient stay Substantial Risk for: inability to function and rapid decompensation Time Spent With Patient Time: Total time managing care of this patient today ____ minutes.
[2024-09-26 20:00] VITALS: BP 113/74; PULSE 78; RESP 16; TEMP 37.1; O2SAT 98
[2024-09-26] MEDS: Doxepin HCl 10 MG CAPSULE 20 MG PO (21:55)
[2024-09-26] MEDS: ARIPiprazole 2 MG TABLET PO (21:56)
[2024-09-27 07:52] VITALS: BP 120/74; PULSE 74; RESP 16; TEMP 36.2; O2SAT 98
[2024-09-27] MEDS: Atorvastatin Calcium 40 MG TABLET PO (08:10)
[2024-09-27] MEDS: Sertraline HCL 50 MG TABLET 150 MG PO (08:10)
[2024-09-27] MEDS: Aspirin 81 MG TAB.CHEW PO (08:11)
[2024-09-27] MEDS: Clopidogrel Bisulfate 75 MG TABLET PO (08:11)
--- NOTE | 2024-09-27 09:06 | HO.PSYCHPN ---
Subjective Subjective Date of Service: 10/13/24 Reason For Visit: Depression Interim History: Met with patient; discussed with team; reviewed chart pt says he's a little better; talking more freely, thinking anxiety is a little less, perhaps due to abilify 2mg. Trouble sleeping but agrees Clonidine helped so agrees to restart. Since feeling a little better, would like to leave meds as they are for now. Mental Status Exam Mental Status Exam Narrative: Pt is alert and oriented; behavior is cooperative, polite and calm; patient is not in distress; dressed in casual attire with unkempt hair, scruffy; adequate hygiene; mood is described as little better and affect congruent, brighter; eye contact appropriate; Speech is normal rate, volume and prosody and not pressured; less psychomotor retardation present; thought process is organized and goal directed; Thought content is on dealing with hopeless feelings, tx; otherwise pertinent to relevant topics and without any delusional content, paranoid ideations or grandiosity; denies any SI/HI. Denies AVH and there is no evidence of perceptual disturbance. Patients insight and judgment improving. Diagnostics Vital Signs (24Hr): Vital Signs - 24 hr 09/26/24 20:00 09/27/24 07:52 Temperature 98.7 F 97.2 F Pulse Rate 78 74 Respiratory Rate 16 16 Blood Pressure 113/74 120/74 Pulse Oximetry 98 98 Oxygen Delivery Method Room Air Room Air BMI result Body Mass Index 23.7 Labs 09/22/24 12:11 09/22/24 12:11 Medications Medications Current Medications Acetaminophen (Acetaminophen 325 Mg Tablet) 650 mg PO Q6H PRN PRN Reason: Headache/Pain, Scale 1-10 Al Hydroxide/Mg Hydroxide (Magnesium Hydrox/Alum Hydrox 30 Ml Oral.Susp) 30 ml PO Q6H PRN PRN Reason: Heartburn/Nausea Aripiprazole (Aripiprazole 2 Mg Tablet) 2 mg PO BEDTIME [facility] Last Admin: 09/26/24 21:56 Dose: 2 mg Aspirin (Aspirin 81 Mg Tab.Chew) 81 mg PO DAILY [facility] Last Admin: 09/27/24 08:11 Dose: 81 mg Atorvastatin Calcium (Atorvastatin Calcium 40 Mg Tablet) 40 mg PO DAILY [facility] Last Admin: 09/27/24 08:10 Dose: 40 mg Clopidogrel Bisulfate (Clopidogrel Bisulfate 75 Mg Tablet) 75 mg PO DAILY [facility] Last Admin: 09/27/24 08:11 Dose: 75 mg Doxepin HCl (Doxepin Hcl 10 Mg Capsule) 20 mg PO BEDTIME [facility] Last Admin: 09/26/24 21:55 Dose: 20 mg Hydroxyzine HCl (Hydroxyzine Hcl 10 Mg Tablet) 10 mg PO Q6H PRN PRN Reason: anxiety/restlessness Magnesium Hydroxide (Milk Of Magnesia 30 Ml Oral.Susp) 30 ml PO DAILY PRN PRN Reason: Constipation Nicotine Polacrilex (Nicotine Polacrilex 2 Mg Gum) 4 mg BUCCAL Q2H PRN PRN Reason: Nicotine Cravings Ondansetron HCl (Ondansetron Odt 4 Mg Tab.Rapdis) 4 mg TRANSLINGU RQ6H PRN PRN Reason: Nausea Sertraline HCl (Sertraline Hcl 50 Mg Tablet) 150 mg PO DAILY [facility] Last Admin: 09/27/24 08:10 Dose: 150 mg Trazodone HCl (Trazodone Hcl 50 Mg Tablet) 50 mg PO BEDTIME MRX1 PRN PRN Reason: Insomnia Allergies Allergies Allergy/AdvReac Type Severity Reaction Status Date / Time No Known Allergies Allergy Verified 09/22/24 11:56 Assessment & Plan Assessment & Plan (1) MDD (major depressive disorder), recurrent severe, without psychosis: Status: Acute Code(s): F33.2 - Major depressive disorder, recurrent severe without psychotic features (2) Anxiety: Status: Acute Code(s): F41.9 - Anxiety disorder, unspecified (3) Peyronie's disease: Status: Acute Code(s): N48.6 - Induration penis plastica Plan Patient is a 59-year-old male with history of depression, SAD, alcohol use disorder, history of CVA, Peyronie's disease, chronic back pain who presents for worsening depression and anxiety in the face of multiple psychosocial stressors. Patient reports that in May this past election was when anxiety and depression started. Over the subsequent months, he found his anxiety and depression increasing exacerbated by the cold and dark season which is chronic for him. Compounding these issues are chronic Patient endorses increasing diminished interest in things, low energy, poor appetite and losing weight, trouble sleeping... Patient's anxiety also continued to worsen and he became constantly nauseous... Patient had never been on psychiatric medications before but was started on the antidepressants Zoloft titrated to 100 mg but not helpful; tried mirtazapine for 1 day but not helpful; given clonazepam but patient avoided it due to history of alcohol use. Over the past several weeks, patient's depression worsened and this past week he started thinking that life was not worth living, and though no plans or intent, started becoming desperately hopeless that he would be able to get better. Patient went to an intake for the partial program, expressed suicidal sentiment and was referred to inpatient admission. Patient denies any history of manic episodes or behaviors; history of [id number] bouts of depression, mostly sublinical; denies history of trauma; no AVH. No other history of suicidality. Patient has a long history of on and off alcohol abuse, drinking about 12 beers a day for few months and then being sober for few months; for the past few weeks he has only been drinking 4 beers a day. No other drug abuse history other than cannabis. Formulation/clinical reason: Patient has history of moderate MDD and SAD; likely history of alcohol abuse has masked symptoms of both depression and anxiety. 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 Patient has had no benefit from Zoloft 100 mg; he agrees to increase it to 150 and if still no benefit will try different medication. Patient agrees to doxepin q.h.s. for ongoing insomnia; discussed trazodone as an option however patient has Peyronie's disease and while that does not place him at increased risk for priapism, should the rare side effect of priapism occur it could worsen pre-existing Peyronie's disease; patient understands risks and will consider whether not to try it. Also discussed clonidine for anxiety; he agrees to discontinue clonazepam for now as he has hardly been taking the past several weeks. Hospital course: 09/24 Anxiety remains, but pt feels maybe less intense..Clonidine also seemed to help as a Prn. Continues with intermittent hopeless thoughts, asking are the problems insurmountable? but pt talking about it....working on trying to not get overwhelmed... -regarding sleep, feels Doxepin seemed helpful and slept better; wonders if quiet environment, may not have needed help with sleep aide, however will continue and understands Doxepin also helps with anxiety/depression. 09/25/24 discussed adjunctive abilify for rumination/depression add on - patient given print out- 09/26 more organized tp and anxiety down today- but odd s/e of trouble hearing ambient electric as organized radio sound? - - provider will dc clonidine- but continue doxepin and abilify...and let dr weeks decide on forward course 09/27 pt says he's a little better; talking more freely, thinking anxiety is a little less, perhaps due to abilify 2mg. Trouble sleeping but agrees Clonidine helped so agrees to restart. Since feeling a little better, would like to leave meds as they are for now. -sleeping well enough, but groggy next day Plan: CV Q 15 minute checks started on Abilify 2mg qhs Continue Zoloft to 150 mg daily Continue doxepin 20 mg q.h.s. for insomnia and help with anxiety/depression Continue clonidine 0.1 mg q.h.s. for insomnia Continue clonidine 0.1 mg q.4 p.r.n. for moderate anxiety Discontinue clonazepam; patient would like to avoid benzodiazepines Substance abuse treatment and risks discussed with patient who at this time patient declines MAT or help with outpt treatment options including programs; instead patient is choosing to work out sobriety on own (and has been cutting down on his own). Patient educated on: diagnosis, medication risk/benefits and therapeutic strategies Informed Consent: understands Reason for continued inpatient stay Substantial Risk for: rapid decompensation Time Spent With Patient Time: Total time managing care of this patient today ____ minutes.
[2024-09-27 20:00] VITALS: BP 118/75; PULSE 88; TEMP 36.6; O2SAT 97
[2024-09-27] MEDS: ARIPiprazole 2 MG TABLET PO (22:11)
[2024-09-27] MEDS: Doxepin HCl 10 MG CAPSULE 20 MG PO (22:11)
[2024-09-28 08:00] VITALS: BP 129/80; PULSE 75; RESP 18; TEMP 36; O2SAT 98
[2024-09-28] MEDS: Clopidogrel Bisulfate 75 MG TABLET PO (09:01)
[2024-09-28] MEDS: Sertraline HCL 50 MG TABLET 150 MG PO (09:01)
[2024-09-28] MEDS: Atorvastatin Calcium 40 MG TABLET PO (09:01)
[2024-09-28] MEDS: Aspirin 81 MG TAB.CHEW PO (09:01)
--- NOTE | 2024-09-28 10:16 | P.PNPSI_ITS ---
Subjective Subjective Date of Service: 09/28/24 Reason For Visit: Depression Interim History: Met with patient; discussed with team Patient feeling a little better; still anxious but feels he is much more able to cope. Increased optimism. Discussed coping strategies, perspective. Mental Status Exam Mental Status Exam Narrative: Pt is alert and oriented; behavior is cooperative, polite and calm; patient is not in distress; dressed in casual attire with unkempt hair, scruffy; adequate hygiene; mood is described as little better and affect congruent, brighter; eye contact appropriate; Speech is normal rate, volume and prosody and not pressured; less psychomotor retardation present; thought process is organized and goal directed; Thought content is on dealing with hopeless feelings, tx; otherwise pertinent to relevant topics and without any delusional content, paranoid ideations or grandiosity; denies any SI/HI. Denies AVH and there is no evidence of perceptual disturbance. Patients insight and judgment improving, fair Diagnostics Vital Signs (24Hr): Vital Signs - 24 hr 09/27/24 20:00 09/28/24 08:00 Temperature 97.8 F 96.8 F Pulse Rate 88 75 Respiratory Rate 18 Blood Pressure 118/75 129/80 Pulse Oximetry 97 98 Oxygen Delivery Method Room Air Room Air BMI result Body Mass Index 23.7 Labs 09/22/24 12:11 09/22/24 12:11 Medications Medications Current Medications Acetaminophen (Acetaminophen 325 Mg Tablet) 650 mg PO Q6H PRN PRN Reason: Headache/Pain, Scale 1-10 Al Hydroxide/Mg Hydroxide (Magnesium Hydrox/Alum Hydrox 30 Ml Oral.Susp) 30 ml PO Q6H PRN PRN Reason: Heartburn/Nausea Aripiprazole (Aripiprazole 2 Mg Tablet) 2 mg PO BEDTIME [facility] Last Admin: 09/27/24 22:11 Dose: 2 mg Aspirin (Aspirin 81 Mg Tab.Chew) 81 mg PO DAILY [facility] Last Admin: 09/28/24 09:01 Dose: 81 mg Atorvastatin Calcium (Atorvastatin Calcium 40 Mg Tablet) 40 mg PO DAILY [facility] Last Admin: 09/28/24 09:01 Dose: 40 mg Clonidine HCl (Clonidine Hcl 0.1 Mg Tablet) 0.1 mg PO Q4H PRN; Protocol PRN Reason: moderate anxiety Clopidogrel Bisulfate (Clopidogrel Bisulfate 75 Mg Tablet) 75 mg PO DAILY [facility] Last Admin: 09/28/24 09:01 Dose: 75 mg Doxepin HCl (Doxepin Hcl 10 Mg Capsule) 20 mg PO BEDTIME [facility] Last Admin: 09/27/24 22:11 Dose: 20 mg Hydroxyzine HCl (Hydroxyzine Hcl 10 Mg Tablet) 10 mg PO Q6H PRN PRN Reason: anxiety/restlessness Magnesium Hydroxide (Milk Of Magnesia 30 Ml Oral.Susp) 30 ml PO DAILY PRN PRN Reason: Constipation Nicotine Polacrilex (Nicotine Polacrilex 2 Mg Gum) 4 mg BUCCAL Q2H PRN PRN Reason: Nicotine Cravings Ondansetron HCl (Ondansetron Odt 4 Mg Tab.Rapdis) 4 mg TRANSLINGU RQ6H PRN PRN Reason: Nausea Sertraline HCl (Sertraline Hcl 50 Mg Tablet) 150 mg PO DAILY [facility] Last Admin: 09/28/24 09:01 Dose: 150 mg Trazodone HCl (Trazodone Hcl 50 Mg Tablet) 50 mg PO BEDTIME MRX1 PRN PRN Reason: Insomnia Allergies Allergies Allergy/AdvReac Type Severity Reaction Status Date / Time No Known Allergies Allergy Verified 09/22/24 11:56 Assessment & Plan Assessment & Plan (1) MDD (major depressive disorder), recurrent severe, without psychosis: Status: Acute Code(s): F33.2 - Major depressive disorder, recurrent severe without psychotic features (2) Anxiety: Status: Acute Code(s): F41.9 - Anxiety disorder, unspecified (3) Peyronie's disease: Status: Acute Code(s): N48.6 - Induration penis plastica Plan Patient is a 59-year-old male with history of depression, SAD, alcohol use disorder, history of CVA, Peyronie's disease, chronic back pain who presents for worsening depression and anxiety in the face of multiple psychosocial stressors. Patient reports that in May this past election was when anxiety and depression started. Over the subsequent months, he found his anxiety and depression increasing exacerbated by the cold and dark season which is chronic for him. Compounding these issues are chronic Patient endorses increasing diminished interest in things, low energy, poor appetite and losing weight, trouble sleeping... Patient's anxiety also continued to worsen and he became constantly nauseous... Patient had never been on psychiatric medications before but was started on the antidepressants Zoloft titrated to 100 mg but not helpful; tried mirtazapine for 1 day but not helpful; given clonazepam but patient avoided it due to history of alcohol use. Over the past several weeks, patient's depression worsened and this past week he started thinking that life was not worth living, and though no plans or intent, started becoming desperately hopeless that he would be able to get better. Patient went to an intake for the partial program, expressed suicidal sentiment and was referred to inpatient admission. Patient denies any history of manic episodes or behaviors; history of [id number] bouts of depression, mostly sublinical; denies history of trauma; no AVH. No other history of suicidality. Patient has a long history of on and off alcohol abuse, drinking about 12 beers a day for few months and then being sober for few months; for the past few weeks he has only been drinking 4 beers a day. No other drug abuse history other than cannabis. Formulation/clinical reason: Patient has history of moderate MDD and SAD; likely history of alcohol abuse has masked symptoms of both depression and anxiety. 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 Patient has had no benefit from Zoloft 100 mg; he agrees to increase it to 150 and if still no benefit will try different medication. Patient agrees to doxepin q.h.s. for ongoing insomnia; discussed trazodone as an option however patient has Peyronie's disease and while that does not place him at increased risk for priapism, should the rare side effect of priapism occur it could worsen pre-existing Peyronie's disease; patient understands risks and will consider whether not to try it. Also discussed clonidine for anxiety; he agrees to discontinue clonazepam for now as he has hardly been taking the past several weeks. Hospital course: 09/24 Anxiety remains, but pt feels maybe less intense..Clonidine also seemed to help as a Prn. Continues with intermittent hopeless thoughts, asking are the problems insurmountable? but pt talking about it....working on trying to not get overwhelmed... -regarding sleep, feels Doxepin seemed helpful and slept better; wonders if quiet environment, may not have needed help with sleep aide, however will continue and understands Doxepin also helps with anxiety/depression. 09/25/24 discussed adjunctive abilify for rumination/depression add on - patient given print out- 09/26 more organized tp and anxiety down today- but odd s/e of trouble hearing ambient electric as organized radio sound? - - provider will dc clonidine- but continue doxepin and abilify...and let dr weeks decide on forward course 09/27 pt says he's a little better; talking more freely, thinking anxiety is a little less, perhaps due to abilify 2mg. Trouble sleeping but agrees Clonidine helped so agrees to restart. Since feeling a little better, would like to leave meds as they are for now. -sleeping well enough, but groggy next day 09/28 Patient feeling a little better; still anxious but feels he is much more able to cope. Increased optimism Plan: CV Q 15 minute checks Continue Abilify 2mg qhs Continue Zoloft to 150 mg daily Continue doxepin 20 mg q.h.s. for insomnia and help with anxiety/depression Continue clonidine 0.1 mg q.h.s. for insomnia Continue clonidine 0.1 mg q.4 p.r.n. for moderate anxiety Discontinue clonazepam; patient would like to avoid benzodiazepines Substance abuse treatment and risks discussed with patient who at this time patient declines MAT or help with outpt treatment options including programs; instead patient is choosing to work out sobriety on own (and has been cutting down on his own). Patient educated on: diagnosis, medication risk/benefits and therapeutic strategies Informed Consent: understands Reason for continued inpatient stay Substantial Risk for: stable for discharge and rapid decompensation Time Spent With Patient Time: Total time managing care of this patient today ____ minutes.
[2024-09-28 20:00] VITALS: BP 131/87; PULSE 84; RESP 16; TEMP 36.6; O2SAT 97
[2024-09-28 21:06] VITALS: BP 131/86
[2024-09-28] MEDS: cloNIDine HCL 0.1 MG TABLET PO (21:06)
[2024-09-28] MEDS: ARIPiprazole 2 MG TABLET PO (21:06)
[2024-09-28] MEDS: Doxepin HCl 10 MG CAPSULE 20 MG PO (22:32)
[2024-09-29 08:00] VITALS: BP 133/74; PULSE 81; RESP 18; TEMP 35.8; O2SAT 97
[2024-09-29] MEDS: Atorvastatin Calcium 40 MG TABLET PO (08:18)
[2024-09-29] MEDS: Aspirin 81 MG TAB.CHEW PO (08:18)
[2024-09-29] MEDS: Sertraline HCL 50 MG TABLET 150 MG PO (08:18)
[2024-09-29] MEDS: Clopidogrel Bisulfate 75 MG TABLET PO (08:18)
--- NOTE | 2024-09-29 18:13 | P.PNPSI_ITS ---
Subjective Subjective Date of Service: 09/29/24 Reason For Visit: Depression Interim History: Met with patient; discussed with team Patient continues to say that he is doing a little better. Patient also said that he is sleeping better and not so groggy this next morning. Still anxious about a lot of different things including what will happen when he leaves the hospital. Patient wants to go to partial day program on discharge which he hopes can happen soon. Continued to discuss coping strategies Mental Status Exam Mental Status Exam Narrative: Pt is alert and oriented; behavior is cooperative, polite and calm; patient is not in distress; dressed in casual attire with unkempt hair, scruffy; adequate hygiene; mood is described as better and affect congruent, brighter; eye contact appropriate; Speech is normal rate, volume and prosody and not pressured; no psychomotor retardation present; thought process is organized and goal directed; Thought content is on dealing with hopeless feelings, tx; otherwise pertinent to relevant topics and without any delusional content, paranoid ideations or grandiosity; denies any SI/HI. Denies AVH and there is no evidence of perceptual disturbance. Patients insight and judgment improving, fair Diagnostics Vital Signs (24Hr): Vital Signs - 24 hr 09/28/24 20:00 09/28/24 21:06 09/29/24 08:00 Temperature 97.8 F 96.4 F L Pulse Rate 84 81 Respiratory Rate 16 18 Blood Pressure 131/87 131/86 133/74 Pulse Oximetry 97 97 Oxygen Delivery Method Room Air Room Air BMI result Body Mass Index 23.7 Labs 09/22/24 12:11 09/22/24 12:11 Medications Medications Current Medications Acetaminophen (Acetaminophen 325 Mg Tablet) 650 mg PO Q6H PRN PRN Reason: Headache/Pain, Scale 1-10 Al Hydroxide/Mg Hydroxide (Magnesium Hydrox/Alum Hydrox 30 Ml Oral.Susp) 30 ml PO Q6H PRN PRN Reason: Heartburn/Nausea Aripiprazole (Aripiprazole 2 Mg Tablet) 2 mg PO BEDTIME [facility] Last Admin: 09/28/24 21:06 Dose: 2 mg Aspirin (Aspirin 81 Mg Tab.Chew) 81 mg PO DAILY [facility] Last Admin: 09/29/24 08:18 Dose: 81 mg Atorvastatin Calcium (Atorvastatin Calcium 40 Mg Tablet) 40 mg PO DAILY [facility] Last Admin: 09/29/24 08:18 Dose: 40 mg Clonidine HCl (Clonidine Hcl 0.1 Mg Tablet) 0.1 mg PO Q4H PRN; Protocol PRN Reason: moderate anxiety Clonidine HCl (Clonidine Hcl 0.1 Mg Tablet) 0.1 mg PO BEDTIME [facility]; Protocol Last Admin: 09/28/24 21:06 Dose: 0.1 mg Clopidogrel Bisulfate (Clopidogrel Bisulfate 75 Mg Tablet) 75 mg PO DAILY [facility] Last Admin: 09/29/24 08:18 Dose: 75 mg Doxepin HCl (Doxepin Hcl 10 Mg Capsule) 20 mg PO BEDTIME [facility] Last Admin: 09/28/24 22:32 Dose: 20 mg Hydroxyzine HCl (Hydroxyzine Hcl 10 Mg Tablet) 10 mg PO Q6H PRN PRN Reason: anxiety/restlessness Magnesium Hydroxide (Milk Of Magnesia 30 Ml Oral.Susp) 30 ml PO DAILY PRN PRN Reason: Constipation Nicotine Polacrilex (Nicotine Polacrilex 2 Mg Gum) 4 mg BUCCAL Q2H PRN PRN Reason: Nicotine Cravings Ondansetron HCl (Ondansetron Odt 4 Mg Tab.Rapdis) 4 mg TRANSLINGU RQ6H PRN PRN Reason: Nausea Sertraline HCl (Sertraline Hcl 50 Mg Tablet) 150 mg PO DAILY [facility] Last Admin: 09/29/24 08:18 Dose: 150 mg Sodium Chloride (Sodium Chloride 0.65 % Nasal 44 Ml Sprbtl) 1 spray NOSTRIL-B Q1H PRN PRN Reason: dry nares Trazodone HCl (Trazodone Hcl 50 Mg Tablet) 50 mg PO BEDTIME MRX1 PRN PRN Reason: Insomnia Allergies Allergies Allergy/AdvReac Type Severity Reaction Status Date / Time No Known Allergies Allergy Verified 09/22/24 11:56 Assessment & Plan Assessment & Plan (1) MDD (major depressive disorder), recurrent severe, without psychosis: Status: Acute Code(s): F33.2 - Major depressive disorder, recurrent severe without psychotic features (2) Anxiety: Status: Acute Code(s): F41.9 - Anxiety disorder, unspecified (3) Peyronie's disease: Status: Acute Code(s): N48.6 - Induration penis plastica Plan Patient is a 59-year-old male with history of depression, SAD, alcohol use disorder, history of CVA, Peyronie's disease, chronic back pain who presents for worsening depression and anxiety in the face of multiple psychosocial stressors. Patient reports that in May this past election was when anxiety and depression started. Over the subsequent months, he found his anxiety and depression increasing exacerbated by the cold and dark season which is chronic for him. Compounding these issues are chronic Patient endorses increasing diminished interest in things, low energy, poor appetite and losing weight, trouble sleeping... Patient's anxiety also continued to worsen and he became constantly nauseous... Patient had never been on psychiatric medications before but was started on the antidepressants Zoloft titrated to 100 mg but not helpful; tried mirtazapine for 1 day but not helpful; given clonazepam but patient avoided it due to history of alcohol use. Over the past several weeks, patient's depression worsened and this past week he started thinking that life was not worth living, and though no plans or intent, started becoming desperately hopeless that he would be able to get better. Patient went to an intake for the partial program, expressed suicidal sentiment and was referred to inpatient admission. Patient denies any history of manic episodes or behaviors; history of [id number] bouts of depression, mostly sublinical; denies history of trauma; no AVH. No other history of suicidality. Patient has a long history of on and off alcohol abuse, drinking about 12 beers a day for few months and then being sober for few months; for the past few weeks he has only been drinking 4 beers a day. No other drug abuse history other than cannabis. Formulation/clinical reason: Patient has history of moderate MDD and SAD; likely history of alcohol abuse has masked symptoms of both depression and anxiety. Regarding medications, property underwriter reviewed risks/side effects of various medications which patient understood and agreed to try. Patient has had no benefit from Zoloft 100 mg; he agrees to increase it to 150 and if still no benefit will try different medication. Patient agrees to doxepin q.h.s. for ongoing insomnia; discussed trazodone as an option however patient has Peyronie's disease and while that does not place him at increased risk for priapism, should the rare side effect of priapism occur it could worsen pre-existing Peyronie's disease; patient understands risks and will consider whether not to try it. Also discussed clonidine for anxiety; he agrees to discontinue clonazepam for now as he has hardly been taking the past several weeks. Hospital course: 09/24 Anxiety remains, but pt feels maybe less intense..Clonidine also seemed to help as a Prn. Continues with intermittent hopeless thoughts, asking are the problems insurmountable? but pt talking about it....working on trying to not get overwhelmed... -regarding sleep, feels Doxepin seemed helpful and slept better; wonders if quiet environment, may not have needed help with sleep aide, however will continue and understands Doxepin also helps with anxiety/depression. 09/25/24 discussed adjunctive abilify for rumination/depression add on - patient given print out- 09/26 more organized tp and anxiety down today- but odd s/e of trouble hearing ambient electric as organized radio sound? - - provider will dc clonidine- but continue doxepin and abilify...and let dr weeks decide on forward course 09/27 pt says he's a little better; talking more freely, thinking anxiety is a little less, perhaps due to abilify 2mg. Trouble sleeping but agrees Clonidine helped so agrees to restart. Since feeling a little better, would like to leave meds as they are for now. -sleeping well enough, but groggy next day 09/28 Patient feeling a little better; still anxious but feels he is much more able to cope.? Increased optimism 09/29 continue current treatment plan; clonidine 0.1 mg scheduled q.h.s. with seems to be helping Plan: CV Q 15 minute checks started on Abilify 2mg qhs Continue Zoloft to 150 mg daily Continue doxepin 20 mg q.h.s. for insomnia and help with anxiety/depression Continue clonidine 0.1 mg q.h.s. for insomnia Continue clonidine 0.1 mg q.4 p.r.n. for moderate anxiety Discontinue clonazepam; patient would like to avoid benzodiazepines Substance abuse treatment and risks discussed with patient who at this time patient declines MAT or help with outpt treatment options including programs; instead patient is choosing to work out sobriety on own (and has been cutting down on his own). Patient educated on: diagnosis, medication risk/benefits and therapeutic strategies Informed Consent: understands Reason for continued inpatient stay Substantial Risk for: rapid decompensation Time Spent With Patient Time: Total time managing care of this patient today ____ minutes.
[2024-09-29 20:00] VITALS: BP 124/77; PULSE 88; TEMP 36.8; O2SAT 97
[2024-09-29 20:33] VITALS: BP 124/77
[2024-09-29] MEDS: ARIPiprazole 2 MG TABLET PO (20:33)
[2024-09-29] MEDS: cloNIDine HCL 0.1 MG TABLET PO (20:33)
[2024-09-29] MEDS: Doxepin HCl 10 MG CAPSULE 20 MG PO (21:56)
[2024-09-30] MEDS: traZODone HCL 50 MG TABLET PO (01:52)
[2024-09-30 07:00] VITALS: BMI 24.9
[2024-09-30 08:00] VITALS: BP 120/76; PULSE 71; RESP 16; TEMP 36.9; O2SAT 97
[2024-09-30] MEDS: Sertraline HCL 50 MG TABLET 150 MG PO (08:59)
[2024-09-30] MEDS: Aspirin 81 MG TAB.CHEW PO (08:59)
[2024-09-30] MEDS: Atorvastatin Calcium 40 MG TABLET PO (08:59)
[2024-09-30] MEDS: Clopidogrel Bisulfate 75 MG TABLET PO (08:59)
[2024-09-30] MEDS: Sodium Chloride 0.65 % Nasal 44 ML SPRBTL 1 SPRAY NOSTRIL-B ×2 (09:25→15:31)
[2024-09-30 20:00] VITALS: BP 122/74; PULSE 87; TEMP 36.7; O2SAT 97
[2024-09-30] MEDS: ARIPiprazole 2 MG TABLET PO (20:56)
[2024-09-30 20:57] VITALS: BP 122/74
[2024-09-30] MEDS: cloNIDine HCL 0.1 MG TABLET PO (20:57)
[2024-09-30] MEDS: Doxepin HCl 10 MG CAPSULE 20 MG PO (22:01)
[2024-10-01 08:00] VITALS: BP 122/73; PULSE 74; TEMP 35.7; O2SAT 97
[2024-10-01] MEDS: Sodium Chloride 0.65 % Nasal 44 ML SPRBTL 1 SPRAY NOSTRIL-B (08:48)
[2024-10-01] MEDS: Sertraline HCL 50 MG TABLET 150 MG PO (08:54)
[2024-10-01] MEDS: Atorvastatin Calcium 40 MG TABLET PO (08:55)
[2024-10-01] MEDS: Aspirin 81 MG TAB.CHEW PO (08:55)
[2024-10-01] MEDS: Clopidogrel Bisulfate 75 MG TABLET PO (08:55)
--- NOTE | 2024-10-01 09:22 | HO.PSYCHPN ---
Subjective Subjective Date of Service: 09/30/24 Reason For Visit: Depression Interim History: Late entry note for patient seen on 09/30; discussed with team Patient remains feeling more hopeful, more capable of dealing with his anxiety which is becoming less and less prominent. He says overall it remains significantly lowered and only isolated or specific things seemed to trigger it. Patient still has struggles with sleep and deciding to trazodone Mental Status Exam Mental Status Exam Narrative: Pt is alert and oriented; behavior is cooperative, polite and calm; patient is not in distress; dressed in casual attire with adequate hygiene and grooming; mood is described as ok and affect congruent, brighter; eye contact appropriate; Speech is normal rate, volume and prosody and not pressured; no psychomotor retardation present; thought process is organized and goal directed; Thought content is on dealing with hopeless feelings, tx; otherwise pertinent to relevant topics and without any delusional content, paranoid ideations or grandiosity; denies any SI/HI. Denies AVH and there is no evidence of perceptual disturbance. Patients insight and judgment improving, fair Diagnostics Vital Signs (24Hr): Vital Signs - 24 hr 09/30/24 20:00 09/30/24 20:57 10/01/24 08:00 Temperature 98.0 F 96.2 F L Pulse Rate 87 74 Blood Pressure 122/74 122/74 122/73 Pulse Oximetry 97 97 Oxygen Delivery Method Room Air Room Air BMI result Body Mass Index 24.9 Labs 09/22/24 12:11 09/22/24 12:11 Medications Medications Current Medications Acetaminophen (Acetaminophen 325 Mg Tablet) 650 mg PO Q6H PRN PRN Reason: Headache/Pain, Scale 1-10 Al Hydroxide/Mg Hydroxide (Magnesium Hydrox/Alum Hydrox 30 Ml Oral.Susp) 30 ml PO Q6H PRN PRN Reason: Heartburn/Nausea Aripiprazole (Aripiprazole 2 Mg Tablet) 2 mg PO BEDTIME [facility] Last Admin: 09/30/24 20:56 Dose: 2 mg Aspirin (Aspirin 81 Mg Tab.Chew) 81 mg PO DAILY [facility] Last Admin: 10/01/24 08:55 Dose: 81 mg Atorvastatin Calcium (Atorvastatin Calcium 40 Mg Tablet) 40 mg PO DAILY [facility] Last Admin: 10/01/24 08:55 Dose: 40 mg Clonidine HCl (Clonidine Hcl 0.1 Mg Tablet) 0.1 mg PO Q4H PRN; Protocol PRN Reason: moderate anxiety Clonidine HCl (Clonidine Hcl 0.1 Mg Tablet) 0.1 mg PO BEDTIME [facility]; Protocol Last Admin: 09/30/24 20:57 Dose: 0.1 mg Clopidogrel Bisulfate (Clopidogrel Bisulfate 75 Mg Tablet) 75 mg PO DAILY [facility] Last Admin: 10/01/24 08:55 Dose: 75 mg Doxepin HCl (Doxepin Hcl 10 Mg Capsule) 20 mg PO BEDTIME [facility] Last Admin: 09/30/24 22:01 Dose: 20 mg Hydroxyzine HCl (Hydroxyzine Hcl 10 Mg Tablet) 10 mg PO Q6H PRN PRN Reason: anxiety/restlessness Magnesium Hydroxide (Milk Of Magnesia 30 Ml Oral.Susp) 30 ml PO DAILY PRN PRN Reason: Constipation Nicotine Polacrilex (Nicotine Polacrilex 2 Mg Gum) 4 mg BUCCAL Q2H PRN PRN Reason: Nicotine Cravings Ondansetron HCl (Ondansetron Odt 4 Mg Tab.Rapdis) 4 mg TRANSLINGU RQ6H PRN PRN Reason: Nausea Sertraline HCl (Sertraline Hcl 50 Mg Tablet) 150 mg PO DAILY [facility] Last Admin: 10/01/24 08:54 Dose: 150 mg Sodium Chloride (Sodium Chloride 0.65 % Nasal 44 Ml Sprbtl) 1 spray NOSTRIL-B Q1H PRN PRN Reason: dry nares Last Admin: 10/01/24 08:48 Dose: 1 spray Trazodone HCl (Trazodone Hcl 50 Mg Tablet) 50 mg PO BEDTIME MRX1 PRN PRN Reason: Insomnia Last Admin: 09/30/24 01:52 Dose: 50 mg Allergies Allergies Allergy/AdvReac Type Severity Reaction Status Date / Time No Known Allergies Allergy Verified 09/22/24 11:56 Assessment & Plan Assessment & Plan (1) MDD (major depressive disorder), recurrent severe, without psychosis: Status: Acute Code(s): F33.2 - Major depressive disorder, recurrent severe without psychotic features (2) Anxiety: Status: Acute Code(s): F41.9 - Anxiety disorder, unspecified (3) Peyronie's disease: Status: Acute Code(s): N48.6 - Induration penis plastica Plan Patient is a 59-year-old male with history of depression, SAD, alcohol use disorder, history of CVA, Peyronie's disease, chronic back pain who presents for worsening depression and anxiety in the face of multiple psychosocial stressors. Patient reports that in May this past election was when anxiety and depression started. Over the subsequent months, he found his anxiety and depression increasing exacerbated by the cold and dark season which is chronic for him. Compounding these issues are chronic Patient endorses increasing diminished interest in things, low energy, poor appetite and losing weight, trouble sleeping... Patient's anxiety also continued to worsen and he became constantly nauseous... Patient had never been on psychiatric medications before but was started on the antidepressants Zoloft titrated to 100 mg but not helpful; tried mirtazapine for 1 day but not helpful; given clonazepam but patient avoided it due to history of alcohol use. Over the past several weeks, patient's depression worsened and this past week he started thinking that life was not worth living, and though no plans or intent, started becoming desperately hopeless that he would be able to get better. Patient went to an intake for the partial program, expressed suicidal sentiment and was referred to inpatient admission. Patient denies any history of manic episodes or behaviors; history of [id number] bouts of depression, mostly sublinical; denies history of trauma; no AVH. No other history of suicidality. Patient has a long history of on and off alcohol abuse, drinking about 12 beers a day for few months and then being sober for few months; for the past few weeks he has only been drinking 4 beers a day. No other drug abuse history other than cannabis. Formulation/clinical reason: Patient has history of moderate MDD and SAD; likely history of alcohol abuse has masked symptoms of both depression and anxiety. Regarding medications, press writer reviewed risks/side effects of various medications which patient understood and agreed to try. Patient has had no benefit from Zoloft 100 mg; he agrees to increase it to 150 and if still no benefit will try different medication. Patient agrees to doxepin q.h.s. for ongoing insomnia; discussed trazodone as an option however patient has Peyronie's disease and while that does not place him at increased risk for priapism, should the rare side effect of priapism occur it could worsen pre-existing Peyronie's disease; patient understands risks and will consider whether not to try it. Also discussed clonidine for anxiety; he agrees to discontinue clonazepam for now as he has hardly been taking the past several weeks. Hospital course: 09/24 Anxiety remains, but pt feels maybe less intense..Clonidine also seemed to help as a Prn. Continues with intermittent hopeless thoughts, asking are the problems insurmountable? but pt talking about it....working on trying to not get overwhelmed... -regarding sleep, feels Doxepin seemed helpful and slept better; wonders if quiet environment, may not have needed help with sleep aide, however will continue and understands Doxepin also helps with anxiety/depression. 09/25/24 discussed adjunctive abilify for rumination/depression add on - patient given print out- 09/26 more organized tp and anxiety down today- but odd s/e of trouble hearing ambient electric as organized radio sound? - - provider will dc clonidine- but continue doxepin and abilify...and let dr weeks decide on forward course 09/27 pt says he's a little better; talking more freely, thinking anxiety is a little less, perhaps due to abilify 2mg. Trouble sleeping but agrees Clonidine helped so agrees to restart. Since feeling a little better, would like to leave meds as they are for now. -sleeping well enough, but groggy next day 09/28 Patient feeling a little better; still anxious but feels he is much more able to cope.? Increased optimism 09/29 continue current treatment plan; clonidine 0.1 mg scheduled q.h.s. with seems to be helping 09/30 continue current treatment plan Plan: CV Q 15 minute checks Continue Abilify 2mg qhs Continue Zoloft to 150 mg daily Continue doxepin 20 mg q.h.s. for insomnia and help with anxiety/depression Continue clonidine 0.1 mg q.h.s. for insomnia Continue clonidine 0.1 mg q.4 p.r.n. for moderate anxiety Discontinue clonazepam; patient would like to avoid benzodiazepines Substance abuse treatment and risks discussed with patient who at this time patient declines MAT or help with outpt treatment options including programs; instead patient is choosing to work out sobriety on own (and has been cutting down on his own). Patient educated on: diagnosis, medication risk/benefits and therapeutic strategies Informed Consent: understands Reason for continued inpatient stay Substantial Risk for: stable for discharge Time Spent With Patient Time: Total time managing care of this patient today ____ minutes.
[2024-10-01] MEDS: hydrOXYzine HCL 10 MG TABLET PO (14:38)
--- NOTE | 2024-10-01 18:28 | P.PNPSI_ITS ---
Subjective Subjective Date of Service: 10/01/24 Reason For Visit: Depression Interim History: Met with patient; discussed with team Patient feels that he is much improved. Likes the idea that he can discharge from the unit straight to partial day program and is making plans on how to handle transitioned back home. Discussed patient's struggles with attention and patient shared that he has a history of ADHD symptoms. Discussed ADHD symptoms further which include history of interrupting, blurting out answers, struggles paying attention when people are talking, struggles with task completion, struggle with organizing things, struggles with sitting down for long-time and very often fidgeting misplacing items at home and work, easily distracted by activity or noise around, talking too.... Patient did ADHD screen test and scored consistent with high likelihood of ADHD. Patient agreed to trial of Adderall (risks/side effects discussed) Mental Status Exam Mental Status Exam Narrative: Pt is alert and oriented; behavior is cooperative, polite and calm; patient is not in distress; dressed in casual attire with adequate hygiene and grooming; mood is described as good and affect congruent, brighter; eye contact appropriate; Speech is normal rate, volume and prosody and not pressured; no psychomotor retardation present; thought process is organized and goal directed; Thought content is on dealing with hopeless feelings, tx; otherwise pertinent to relevant topics and without any delusional content, paranoid ideations or grandiosity; denies any SI/HI. Denies AVH and there is no evidence of perceptual disturbance. Patients insight and judgment fair Diagnostics Vital Signs (24Hr): Vital Signs - 24 hr 09/30/24 20:00 09/30/24 20:57 10/01/24 08:00 Temperature 98.0 F 96.2 F L Pulse Rate 87 74 Blood Pressure 122/74 122/74 122/73 Pulse Oximetry 97 97 Oxygen Delivery Method Room Air Room Air BMI result Body Mass Index 24.9 Labs 09/22/24 12:11 09/22/24 12:11 Medications Medications Current Medications Acetaminophen (Acetaminophen 325 Mg Tablet) 650 mg PO Q6H PRN PRN Reason: Headache/Pain, Scale 1-10 Al Hydroxide/Mg Hydroxide (Magnesium Hydrox/Alum Hydrox 30 Ml Oral.Susp) 30 ml PO Q6H PRN PRN Reason: Heartburn/Nausea Amphetamine/Dextroamphetamine (Dextroamphetamine/Amphetamine Xr 10 Mg Cap.Er.24h) 10 mg PO DAILY [facility] Aripiprazole (Aripiprazole 2 Mg Tablet) 2 mg PO BEDTIME [facility] Last Admin: 09/30/24 20:56 Dose: 2 mg Aspirin (Aspirin 81 Mg Tab.Chew) 81 mg PO DAILY [facility] Last Admin: 10/01/24 08:55 Dose: 81 mg Atorvastatin Calcium (Atorvastatin Calcium 40 Mg Tablet) 40 mg PO DAILY [facility] Last Admin: 10/01/24 08:55 Dose: 40 mg Clonidine HCl (Clonidine Hcl 0.1 Mg Tablet) 0.1 mg PO Q4H PRN; Protocol PRN Reason: moderate anxiety Clonidine HCl (Clonidine Hcl 0.1 Mg Tablet) 0.1 mg PO BEDTIME [facility]; Protocol Last Admin: 09/30/24 20:57 Dose: 0.1 mg Clopidogrel Bisulfate (Clopidogrel Bisulfate 75 Mg Tablet) 75 mg PO DAILY [facility] Last Admin: 10/01/24 08:55 Dose: 75 mg Doxepin HCl (Doxepin Hcl 10 Mg Capsule) 20 mg PO BEDTIME [facility] Last Admin: 09/30/24 22:01 Dose: 20 mg Hydroxyzine HCl (Hydroxyzine Hcl 10 Mg Tablet) 10 mg PO Q6H PRN PRN Reason: anxiety/restlessness Last Admin: 10/01/24 14:38 Dose: 10 mg Magnesium Hydroxide (Milk Of Magnesia 30 Ml Oral.Susp) 30 ml PO DAILY PRN PRN Reason: Constipation Nicotine Polacrilex (Nicotine Polacrilex 2 Mg Gum) 4 mg BUCCAL Q2H PRN PRN Reason: Nicotine Cravings Ondansetron HCl (Ondansetron Odt 4 Mg Tab.Rapdis) 4 mg TRANSLINGU RQ6H PRN PRN Reason: Nausea Sertraline HCl (Sertraline Hcl 50 Mg Tablet) 150 mg PO DAILY [facility] Last Admin: 10/01/24 08:54 Dose: 150 mg Sodium Chloride (Sodium Chloride 0.65 % Nasal 44 Ml Sprbtl) 1 spray NOSTRIL-B Q1H PRN PRN Reason: dry nares Last Admin: 10/01/24 08:48 Dose: 1 spray Trazodone HCl (Trazodone Hcl 50 Mg Tablet) 50 mg PO BEDTIME MRX1 PRN PRN Reason: Insomnia Last Admin: 09/30/24 01:52 Dose: 50 mg Allergies Allergies Allergy/AdvReac Type Severity Reaction Status Date / Time No Known Allergies Allergy Verified 09/22/24 11:56 Assessment & Plan Assessment & Plan (1) MDD (major depressive disorder), recurrent severe, without psychosis: Status: Acute Code(s): F33.2 - Major depressive disorder, recurrent severe without psychotic features (2) Anxiety: Status: Acute Code(s): F41.9 - Anxiety disorder, unspecified (3) Peyronie's disease: Status: Acute Code(s): N48.6 - Induration penis plastica (4) ADHD: Status: Suspected Code(s): F90.9 - Attention-deficit hyperactivity disorder, unspecified type Plan Patient is a 59-year-old male with history of depression, SAD, alcohol use disorder, history of CVA, Peyronie's disease, chronic back pain who presents for worsening depression and anxiety in the face of multiple psychosocial stressors. Patient reports that in May this past election was when anxiety and depression started. Over the subsequent months, he found his anxiety and depression increasing exacerbated by the cold and dark season which is chronic for him. Compounding these issues are chronic Patient endorses increasing diminished interest in things, low energy, poor appetite and losing weight, trouble sleeping... Patient's anxiety also continued to worsen and he became constantly nauseous... Patient had never been on psychiatric medications before but was started on the antidepressants Zoloft titrated to 100 mg but not helpful; tried mirtazapine for 1 day but not helpful; given clonazepam but patient avoided it due to history of alcohol use. Over the past several weeks, patient's depression worsened and this past week he started thinking that life was not worth living, and though no plans or intent, started becoming desperately hopeless that he would be able to get better. Patient went to an intake for the partial program, expressed suicidal sentiment and was referred to inpatient admission. Patient denies any history of manic episodes or behaviors; history of [id number] bouts of depression, mostly sublinical; denies history of trauma; no AVH. No other history of suicidality. Patient has a long history of on and off alcohol abuse, drinking about 12 beers a day for few months and then being sober for few months; for the past few weeks he has only been drinking 4 beers a day. No other drug abuse history other than cannabis. Formulation/clinical reason: Patient has history of moderate MDD and SAD; likely history of alcohol abuse has masked symptoms of both depression and anxiety. Regarding medications, newswriter reviewed risks/side effects of various medications which patient understood and agreed to try. Patient has had no benefit from Zoloft 100 mg; he agrees to increase it to 150 and if still no benefit will try different medication. Patient agrees to doxepin q.h.s. for ongoing insomnia; discussed trazodone as an option however patient has Peyronie's disease and while that does not place him at increased risk for priapism, should the rare side effect of priapism occur it could worsen pre-existing Peyronie's disease; patient understands risks and will consider whether not to try it. Also discussed clonidine for anxiety; he agrees to discontinue clonazepam for now as he has hardly been taking the past several weeks. Hospital course: 09/24 Anxiety remains, but pt feels maybe less intense..Clonidine also seemed to help as a Prn. Continues with intermittent hopeless thoughts, asking are the problems insurmountable? but pt talking about it....working on trying to not get overwhelmed... -regarding sleep, feels Doxepin seemed helpful and slept better; wonders if quiet environment, may not have needed help with sleep aide, however will continue and understands Doxepin also helps with anxiety/depression. 09/25/24 discussed adjunctive abilify for rumination/depression add on - patient given print out- 09/26 more organized tp and anxiety down today- but odd s/e of trouble hearing ambient electric as organized radio sound? - - provider will dc clonidine- but continue doxepin and abilify...and let dr weeks decide on forward course 09/27 pt says he's a little better; talking more freely, thinking anxiety is a little less, perhaps due to abilify 2mg. Trouble sleeping but agrees Clonidine helped so agrees to restart. Since feeling a little better, would like to leave meds as they are for now. -sleeping well enough, but groggy next day 09/28 Patient feeling a little better; still anxious but feels he is much more able to cope.? Increased optimism 09/29 continue current treatment plan; clonidine 0.1 mg scheduled q.h.s. with seems to be helping 09/30 continue current treatment plan 10/01 Patient feels that he is much improved. Likes the idea that he can discharge from the unit straight to partial day program and is making plans on how to handle transitioned back home. Discussed patient's struggles with attention and patient shared that he has a history of ADHD symptoms. Discussed ADHD symptoms further which include history of interrupting, blurting out answers, struggles paying attention when people are talking, struggles with task completion, struggle with organizing things, struggles with sitting down for long-time and very often fidgeting misplacing items at home and work, easily distracted by activity or noise around, talking too.... Patient did ADHD screen test and scored consistent with high likelihood of ADHD. Patient agreed to trial of Adderall (risks/side effects discussed); newswriter's opinion that ADHD symptoms treated will significantly improves patient's ability to remain stable Plan: CV Q 15 minute checks Trial of Adderall extended release 10 mg daily Continue Abilify 2mg qhs Continue Zoloft to 150 mg daily Continue doxepin 20 mg q.h.s. for insomnia and help with anxiety/depression Continue clonidine 0.1 mg q.h.s. for insomnia Continue clonidine 0.1 mg q.4 p.r.n. for moderate anxiety Discontinue clonazepam; patient would like to avoid benzodiazepines Substance abuse treatment and risks discussed with patient who at this time patient declines MAT or help with outpt treatment options including programs; instead patient is choosing to work out sobriety on own (and has been cutting down on his own). Patient educated on: diagnosis and medication risk/benefits Informed Consent: understands Reason for continued inpatient stay Substantial Risk for: stable for discharge Time Spent With Patient Time: Total time managing care of this patient today ____ minutes.
[2024-10-01 20:00] VITALS: BP 113/74; PULSE 87; RESP 18; TEMP 37.1; O2SAT 97
[2024-10-01 20:26] VITALS: BP 113/74
[2024-10-01] MEDS: cloNIDine HCL 0.1 MG TABLET PO (20:26)
[2024-10-01] MEDS: Doxepin HCl 10 MG CAPSULE 20 MG PO (22:15)
[2024-10-01] MEDS: ARIPiprazole 2 MG TABLET PO (22:15)
[2024-10-02] MEDS: traZODone HCL 50 MG TABLET PO (03:30)
[2024-10-02 07:57] VITALS: BP 123/71; PULSE 69; TEMP 37.2; O2SAT 97
[2024-10-02] MEDS: Sertraline HCL 50 MG TABLET 150 MG PO (08:17)
[2024-10-02] MEDS: Clopidogrel Bisulfate 75 MG TABLET PO (08:17)
[2024-10-02] MEDS: Aspirin 81 MG TAB.CHEW PO (08:17)
[2024-10-02] MEDS: Atorvastatin Calcium 40 MG TABLET PO (08:17)
[2024-10-02] MEDS: Dextroamphetamine/Amphetamine XR 10 MG CAP.ER.24H PO (08:17)
[2024-10-02 12:57] VITALS: BP 126/78
[2024-10-02] MEDS: cloNIDine HCL 0.1 MG TABLET PO ×2 (12:57→21:10)
--- NOTE | 2024-10-02 15:20 | P.PNPSI_ITS ---
Subjective Subjective Date of Service: 10/02/24 Reason For Visit: Depression Interim History: Met with patient; discussed with team Patient reports he is doing well. He says he thinks the Adderall is helping but can not fully tell. He does notice that he is able to read a little better without being distracted (normally has to reread paragraphs) and also that he is able to pay attention to other people talking, however he says the improvements minimal. He agrees to titration Mental Status Exam Mental Status Exam Narrative: Pt is alert and oriented; behavior is cooperative, polite and calm; patient is not in distress; dressed in casual attire with adequate hygiene and grooming; mood is described as good and affect congruent, brighter; eye contact appropriate; Speech is normal rate, volume and prosody and not pressured; no psychomotor retardation present; thought process is organized and goal directed; Thought content is on dealing with hopeless feelings, tx; otherwise pertinent to relevant topics and without any delusional content, paranoid ideations or grandiosity; denies any SI/HI. Denies AVH and there is no evidence of perceptual disturbance. Patients insight and judgment fair Diagnostics Vital Signs (24Hr): Vital Signs - 24 hr 10/01/24 20:00 10/01/24 20:26 10/02/24 07:57 Temperature 98.7 F 98.9 F Pulse Rate 87 69 Respiratory Rate 18 Blood Pressure 113/74 113/74 123/71 Pulse Oximetry 97 97 Oxygen Delivery Method Room Air Room Air 10/02/24 12:57 Temperature Pulse Rate Respiratory Rate Blood Pressure 126/78 Pulse Oximetry Oxygen Delivery Method BMI result Body Mass Index 24.9 Labs 09/22/24 12:11 09/22/24 12:11 Medications Medications Current Medications Acetaminophen (Acetaminophen 325 Mg Tablet) 650 mg PO Q6H PRN PRN Reason: Headache/Pain, Scale 1-10 Al Hydroxide/Mg Hydroxide (Magnesium Hydrox/Alum Hydrox 30 Ml Oral.Susp) 30 ml PO Q6H PRN PRN Reason: Heartburn/Nausea Amphetamine/Dextroamphetamine (Dextroamphetamine/Amphetamine Xr 10 Mg Cap.Er.24h) 10 mg PO DAILY [facility] Last Admin: 10/02/24 08:17 Dose: 10 mg Aripiprazole (Aripiprazole 2 Mg Tablet) 2 mg PO BEDTIME [facility] Last Admin: 10/01/24 22:15 Dose: 2 mg Aspirin (Aspirin 81 Mg Tab.Chew) 81 mg PO DAILY [facility] Last Admin: 10/02/24 08:17 Dose: 81 mg Atorvastatin Calcium (Atorvastatin Calcium 40 Mg Tablet) 40 mg PO DAILY [facility] Last Admin: 10/02/24 08:17 Dose: 40 mg Clonidine HCl (Clonidine Hcl 0.1 Mg Tablet) 0.1 mg PO Q4H PRN; Protocol PRN Reason: moderate anxiety Last Admin: 10/02/24 12:57 Dose: 0.1 mg Clonidine HCl (Clonidine Hcl 0.1 Mg Tablet) 0.1 mg PO BEDTIME [facility]; Protocol Last Admin: 10/01/24 20:26 Dose: 0.1 mg Clopidogrel Bisulfate (Clopidogrel Bisulfate 75 Mg Tablet) 75 mg PO DAILY [facility] Last Admin: 10/02/24 08:17 Dose: 75 mg Doxepin HCl (Doxepin Hcl 10 Mg Capsule) 20 mg PO BEDTIME [facility] Last Admin: 10/01/24 22:15 Dose: 20 mg Hydroxyzine HCl (Hydroxyzine Hcl 10 Mg Tablet) 10 mg PO Q6H PRN PRN Reason: anxiety/restlessness Last Admin: 10/01/24 14:38 Dose: 10 mg Magnesium Hydroxide (Milk Of Magnesia 30 Ml Oral.Susp) 30 ml PO DAILY PRN PRN Reason: Constipation Nicotine Polacrilex (Nicotine Polacrilex 2 Mg Gum) 4 mg BUCCAL Q2H PRN PRN Reason: Nicotine Cravings Ondansetron HCl (Ondansetron Odt 4 Mg Tab.Rapdis) 4 mg TRANSLINGU RQ6H PRN PRN Reason: Nausea Sertraline HCl (Sertraline Hcl 50 Mg Tablet) 150 mg PO DAILY [facility] Last Admin: 10/02/24 08:17 Dose: 150 mg Sodium Chloride (Sodium Chloride 0.65 % Nasal 44 Ml Sprbtl) 1 spray NOSTRIL-B Q1H PRN PRN Reason: dry nares Last Admin: 10/01/24 08:48 Dose: 1 spray Trazodone HCl (Trazodone Hcl 50 Mg Tablet) 50 mg PO BEDTIME MRX1 PRN PRN Reason: Insomnia Last Admin: 10/02/24 03:30 Dose: 50 mg Allergies Allergies Allergy/AdvReac Type Severity Reaction Status Date / Time No Known Allergies Allergy Verified 09/22/24 11:56 Assessment & Plan Assessment & Plan (1) MDD (major depressive disorder), recurrent severe, without psychosis: Status: Acute Code(s): F33.2 - Major depressive disorder, recurrent severe without psychotic features (2) Anxiety: Status: Acute Code(s): F41.9 - Anxiety disorder, unspecified (3) Peyronie's disease: Status: Acute Code(s): N48.6 - Induration penis plastica (4) ADHD: Status: Suspected Code(s): F90.9 - Attention-deficit hyperactivity disorder, unspecified type Plan Patient is a 59-year-old male with history of depression, SAD, alcohol use disorder, history of CVA, Peyronie's disease, chronic back pain who presents for worsening depression and anxiety in the face of multiple psychosocial stressors. Patient reports that in May this past election was when anxiety and depression started. Over the subsequent months, he found his anxiety and depression increasing exacerbated by the cold and dark season which is chronic for him. Compounding these issues are chronic Patient endorses increasing diminished interest in things, low energy, poor appetite and losing weight, trouble sleeping... Patient's anxiety also continued to worsen and he became constantly nauseous... Patient had never been on psychiatric medications before but was started on the antidepressants Zoloft titrated to 100 mg but not helpful; tried mirtazapine for 1 day but not helpful; given clonazepam but patient avoided it due to history of alcohol use. Over the past several weeks, patient's depression worsened and this past week he started thinking that life was not worth living, and though no plans or intent, started becoming desperately hopeless that he would be able to get better. Patient went to an intake for the partial program, expressed suicidal sentiment and was referred to inpatient admission. Patient denies any history of manic episodes or behaviors; history of [id number] bouts of depression, mostly sublinical; denies history of trauma; no AVH. No other history of suicidality. Patient has a long history of on and off alcohol abuse, drinking about 12 beers a day for few months and then being sober for few months; for the past few weeks he has only been drinking 4 beers a day. No other drug abuse history other than cannabis. Formulation/clinical reason: Patient has history of moderate MDD and SAD; likely history of alcohol abuse has masked symptoms of both depression and anxiety. Regarding medications, scientific writer reviewed risks/side effects of various medications which patient understood and agreed to try. Patient has had no benefit from Zoloft 100 mg; he agrees to increase it to 150 and if still no benefit will try different medication. Patient agrees to doxepin q.h.s. for ongoing insomnia; discussed trazodone as an option however patient has Peyronie's disease and while that does not place him at increased risk for priapism, should the rare side effect of priapism occur it could worsen pre-existing Peyronie's disease; patient understands risks and will consider whether not to try it. Also discussed clonidine for anxiety; he agrees to discontinue clonazepam for now as he has hardly been taking the past several weeks. Hospital course: 09/24 Anxiety remains, but pt feels maybe less intense..Clonidine also seemed to help as a Prn. Continues with intermittent hopeless thoughts, asking are the problems insurmountable? but pt talking about it....working on trying to not get overwhelmed... -regarding sleep, feels Doxepin seemed helpful and slept better; wonders if quiet environment, may not have needed help with sleep aide, however will continue and understands Doxepin also helps with anxiety/depression. 09/25/24 discussed adjunctive abilify for rumination/depression add on - patient given print out- 09/26 more organized tp and anxiety down today- but odd s/e of trouble hearing ambient electric as organized radio sound? - - provider will dc clonidine- but continue doxepin and abilify...and let dr weeks decide on forward course 09/27 pt says he's a little better; talking more freely, thinking anxiety is a little less, perhaps due to abilify 2mg. Trouble sleeping but agrees Clonidine helped so agrees to restart. Since feeling a little better, would like to leave meds as they are for now. -sleeping well enough, but groggy next day 09/28 Patient feeling a little better; still anxious but feels he is much more able to cope.? Increased optimism 09/29 continue current treatment plan; clonidine 0.1 mg scheduled q.h.s. with seems to be helping 09/30 continue current treatment plan 10/01 Patient feels that he is much improved. Likes the idea that he can discharge from the unit straight to partial day program and is making plans on how to handle transitioned back home. -Discussed patient's struggles with attention and patient shared that he has a history of ADHD symptoms. Discussed ADHD symptoms further which include history of interrupting, blurting out answers, struggles paying attention when people are talking, struggles with task completion, struggle with organizing things, struggles with sitting down for long-time and very often fidgeting misplacing items at home and work, easily distracted by activity or noise around, talking too.... -Patient did ADHD screen test and scored consistent with high likelihood of ADHD. Patient agreed to trial of Adderall (risks/side effects discussed); scientific writer's opinion that ADHD symptoms treated will significantly improves patient's ability to remain stable -patient also has history of CVA which is another possible contributions to struggles with attention 10/02 Patient reports he is doing well. He says he thinks the Adderall is helping but can not fully tell. He does notice that he is able to read a little better without being distracted (normally has to reread paragraphs) and also that he is able to pay attention to other people talking, however he says the improvements minimal. He agrees to titration Plan: CV Q 15 minute checks Increase Adderall ER to 20 mg daily Continue Abilify 2mg qhs Continue Zoloft to 150 mg daily Continue doxepin 20 mg q.h.s. for insomnia and help with anxiety/depression Continue clonidine 0.1 mg q.h.s. for insomnia Continue clonidine 0.1 mg q.4 p.r.n. for moderate anxiety Discontinue clonazepam; patient would like to avoid benzodiazepines Substance abuse treatment and risks discussed with patient who at this time patient declines MAT or help with outpt treatment options including programs; instead patient is choosing to work out sobriety on own (and has been cutting down on his own). Patient educated on: diagnosis and medication risk/benefits Informed Consent: understands Reason for continued inpatient stay Substantial Risk for: stable for discharge Time Spent With Patient Time: Total time managing care of this patient today ____ minutes.
[2024-10-02 20:00] VITALS: BP 108/70; PULSE 81; RESP 16; TEMP 37.1; O2SAT 98
[2024-10-02] MEDS: ARIPiprazole 2 MG TABLET PO (21:09)
[2024-10-02 21:10] VITALS: BP 107/66
[2024-10-02] MEDS: Doxepin HCl 10 MG CAPSULE 20 MG PO (22:10)
[2024-10-03] MEDS: Sertraline HCL 50 MG TABLET 150 MG PO (08:26)
[2024-10-03] MEDS: Dextroamphetamine/Amphetamine XR 10 MG CAP.ER.24H 20 MG PO (08:26)
[2024-10-03] MEDS: Aspirin 81 MG TAB.CHEW PO (08:27)
[2024-10-03] MEDS: Clopidogrel Bisulfate 75 MG TABLET PO (08:27)
[2024-10-03] MEDS: Atorvastatin Calcium 40 MG TABLET PO (08:27)
--- NOTE | 2024-10-03 09:11 | P.PNPSI_ITS ---
Subjective Subjective Date of Service: 10/03/24 Reason For Visit: Depression Interim History: met with pt; discussed with team pt says adderall helps w/ focus but causing anxiety and feels he does better w/out; otherwise doing well Mental Status Exam Mental Status Exam Narrative: Pt is alert and oriented; behavior is cooperative, polite and calm; patient is not in distress; dressed in casual attire with adequate hygiene and grooming; mood is described as good and affect congruent, brighter; eye contact appropriate; Speech is normal rate, volume and prosody and not pressured; no psychomotor retardation present; thought process is organized and goal directed; Thought content is on dealing with hopeless feelings, tx; otherwise pertinent to relevant topics and without any delusional content, paranoid ideations or grandiosity; denies any SI/HI. Denies AVH and there is no evidence of perceptual disturbance. Patients insight and judgment fair Diagnostics Vital Signs (24Hr): Vital Signs - 24 hr 10/02/24 12:57 10/02/24 20:00 10/02/24 21:10 Temperature 98.7 F Pulse Rate 81 Respiratory Rate 16 Blood Pressure 126/78 108/70 107/66 Pulse Oximetry 98 Oxygen Delivery Method Room Air BMI result Body Mass Index 24.9 Labs 09/22/24 12:11 09/22/24 12:11 Medications Medications Current Medications Acetaminophen (Acetaminophen 325 Mg Tablet) 650 mg PO Q6H PRN PRN Reason: Headache/Pain, Scale 1-10 Al Hydroxide/Mg Hydroxide (Magnesium Hydrox/Alum Hydrox 30 Ml Oral.Susp) 30 ml PO Q6H PRN PRN Reason: Heartburn/Nausea Amphetamine/Dextroamphetamine (Dextroamphetamine/Amphetamine Xr 10 Mg Cap.Er.24h) 20 mg PO DAILY [facility] Last Admin: 10/03/24 08:26 Dose: 20 mg Aripiprazole (Aripiprazole 2 Mg Tablet) 2 mg PO BEDTIME [facility] Last Admin: 10/02/24 21:09 Dose: 2 mg Aspirin (Aspirin 81 Mg Tab.Chew) 81 mg PO DAILY [facility] Last Admin: 10/03/24 08:27 Dose: 81 mg Atorvastatin Calcium (Atorvastatin Calcium 40 Mg Tablet) 40 mg PO DAILY [facility] Last Admin: 10/03/24 08:27 Dose: 40 mg Clonidine HCl (Clonidine Hcl 0.1 Mg Tablet) 0.1 mg PO Q4H PRN; Protocol PRN Reason: moderate anxiety Last Admin: 10/02/24 12:57 Dose: 0.1 mg Clonidine HCl (Clonidine Hcl 0.1 Mg Tablet) 0.1 mg PO BEDTIME [facility]; Protocol Last Admin: 10/02/24 21:10 Dose: 0.1 mg Clopidogrel Bisulfate (Clopidogrel Bisulfate 75 Mg Tablet) 75 mg PO DAILY [facility] Last Admin: 10/03/24 08:27 Dose: 75 mg Doxepin HCl (Doxepin Hcl 10 Mg Capsule) 20 mg PO BEDTIME [facility] Last Admin: 10/02/24 22:10 Dose: 20 mg Hydroxyzine HCl (Hydroxyzine Hcl 10 Mg Tablet) 10 mg PO Q6H PRN PRN Reason: anxiety/restlessness Last Admin: 10/01/24 14:38 Dose: 10 mg Magnesium Hydroxide (Milk Of Magnesia 30 Ml Oral.Susp) 30 ml PO DAILY PRN PRN Reason: Constipation Nicotine Polacrilex (Nicotine Polacrilex 2 Mg Gum) 4 mg BUCCAL Q2H PRN PRN Reason: Nicotine Cravings Ondansetron HCl (Ondansetron Odt 4 Mg Tab.Rapdis) 4 mg TRANSLINGU RQ6H PRN PRN Reason: Nausea Sertraline HCl (Sertraline Hcl 50 Mg Tablet) 150 mg PO DAILY [facility] Last Admin: 10/03/24 08:26 Dose: 150 mg Sodium Chloride (Sodium Chloride 0.65 % Nasal 44 Ml Sprbtl) 1 spray NOSTRIL-B Q1H PRN PRN Reason: dry nares Last Admin: 10/01/24 08:48 Dose: 1 spray Trazodone HCl (Trazodone Hcl 50 Mg Tablet) 50 mg PO BEDTIME MRX1 PRN PRN Reason: Insomnia Last Admin: 10/02/24 03:30 Dose: 50 mg Allergies Allergies Allergy/AdvReac Type Severity Reaction Status Date / Time No Known Allergies Allergy Verified 09/22/24 11:56 Assessment & Plan Assessment & Plan (1) MDD (major depressive disorder), recurrent severe, without psychosis: Status: Acute Code(s): F33.2 - Major depressive disorder, recurrent severe without psychotic features (2) Anxiety: Status: Acute Code(s): F41.9 - Anxiety disorder, unspecified (3) Peyronie's disease: Status: Acute Code(s): N48.6 - Induration penis plastica (4) ADHD: Status: Suspected Code(s): F90.9 - Attention-deficit hyperactivity disorder, unspecified type Plan Patient is a 59-year-old male with history of depression, SAD, alcohol use disorder, history of CVA, Peyronie's disease, chronic back pain who presents for worsening depression and anxiety in the face of multiple psychosocial stressors. Patient reports that in May this past election was when anxiety and depression started. Over the subsequent months, he found his anxiety and depression increasing exacerbated by the cold and dark season which is chronic for him. Compounding these issues are chronic Patient endorses increasing diminished interest in things, low energy, poor appetite and losing weight, trouble sleeping... Patient's anxiety also continued to worsen and he became constantly nauseous... Patient had never been on psychiatric medications before but was started on the antidepressants Zoloft titrated to 100 mg but not helpful; tried mirtazapine for 1 day but not helpful; given clonazepam but patient avoided it due to history of alcohol use. Over the past several weeks, patient's depression worsened and this past week he started thinking that life was not worth living, and though no plans or intent, started becoming desperately hopeless that he would be able to get better. Patient went to an intake for the partial program, expressed suicidal sentiment and was referred to inpatient admission. Patient denies any history of manic episodes or behaviors; history of [id number] bouts of depression, mostly sublinical; denies history of trauma; no AVH. No other history of suicidality. Patient has a long history of on and off alcohol abuse, drinking about 12 beers a day for few months and then being sober for few months; for the past few weeks he has only been drinking 4 beers a day. No other drug abuse history other than cannabis. Formulation/clinical reason: Patient has history of moderate MDD and SAD; likely history of alcohol abuse has masked symptoms of both depression and anxiety. Regarding medications, television writer reviewed risks/side effects of various medications which patient understood and agreed to try. Patient has had no benefit from Zoloft 100 mg; he agrees to increase it to 150 and if still no benefit will try different medication. Patient agrees to doxepin q.h.s. for ongoing insomnia; discussed trazodone as an option however patient has Peyronie's disease and while that does not place him at increased risk for priapism, should the rare side effect of priapism occur it could worsen pre-existing Peyronie's disease; patient understands risks and will consider whether not to try it. Also discussed clonidine for anxiety; he agrees to discontinue clonazepam for now as he has hardly been taking the past several weeks. Hospital course: 09/24 Anxiety remains, but pt feels maybe less intense..Clonidine also seemed to help as a Prn. Continues with intermittent hopeless thoughts, asking are the problems insurmountable? but pt talking about it....working on trying to not get overwhelmed... -regarding sleep, feels Doxepin seemed helpful and slept better; wonders if quiet environment, may not have needed help with sleep aide, however will continue and understands Doxepin also helps with anxiety/depression. 09/25/24 discussed adjunctive abilify for rumination/depression add on - patient given print out- 09/26 more organized tp and anxiety down today- but odd s/e of trouble hearing ambient electric as organized radio sound? - - provider will dc clonidine- but continue doxepin and abilify...and let dr weeks decide on forward course 09/27 pt says he's a little better; talking more freely, thinking anxiety is a little less, perhaps due to abilify 2mg. Trouble sleeping but agrees Clonidine helped so agrees to restart. Since feeling a little better, would like to leave meds as they are for now. -sleeping well enough, but groggy next day 09/28 Patient feeling a little better; still anxious but feels he is much more able to cope.? Increased optimism 09/29 continue current treatment plan; clonidine 0.1 mg scheduled q.h.s. with seems to be helping 09/30 continue current treatment plan 10/01 Patient feels that he is much improved. Likes the idea that he can discharge from the unit straight to partial day program and is making plans on how to handle transitioned back home. -Discussed patient's struggles with attention and patient shared that he has a history of ADHD symptoms. Discussed ADHD symptoms further which include history of interrupting, blurting out answers, struggles paying attention when people are talking, struggles with task completion, struggle with organizing things, struggles with sitting down for long-time and very often fidgeting misplacing items at home and work, easily distracted by activity or noise around, talking too.... -Patient did ADHD screen test and scored consistent with high likelihood of ADHD. Patient agreed to trial of Adderall (risks/side effects discussed); television writer's opinion that ADHD symptoms treated will significantly improves patient's ability to remain stable -patient also has history of CVA which is another possible contributions to struggles with attention 10/02 Patient reports he is doing well. He says he thinks the Adderall is helping but can not fully tell. He does notice that he is able to read a little better without being distracted (normally has to reread paragraphs) and also that he is able to pay attention to other people talking, however he says the improvements minimal. He agrees to titration 10/03 adderall causing anxiety so wants it to dc Plan: CV Q 15 minute checks DC Adderall Continue Abilify 2mg qhs Continue Zoloft to 150 mg daily Continue doxepin 20 mg q.h.s. for insomnia and help with anxiety/depression Continue clonidine 0.1 mg q.h.s. for insomnia Continue clonidine 0.1 mg q.4 p.r.n. for moderate anxiety Discontinue clonazepam; patient would like to avoid benzodiazepines Substance abuse treatment and risks discussed with patient who at this time patient declines MAT or help with outpt treatment options including programs; instead patient is choosing to work out sobriety on own (and has been cutting down on his own). Patient educated on: diagnosis and medication risk/benefits Informed Consent: understands Reason for continued inpatient stay Substantial Risk for: stable for discharge Time Spent With Patient Time: Total time managing care of this patient today ____ minutes.
[2024-10-03 09:36] VITALS: BP 109/61; PULSE 78; TEMP 36.9; O2SAT 97
[2024-10-03 14:43] VITALS: BP 128/78
[2024-10-03] MEDS: cloNIDine HCL 0.1 MG TABLET PO ×2 (14:43→19:51)
[2024-10-03 19:51] VITALS: BP 125/88
[2024-10-03 20:00] VITALS: BP 125/88; PULSE 86; TEMP 36.5; O2SAT 97
[2024-10-03] MEDS: Artificial Tears 15 ML DROPS 1 DROP EYE-BOTH (20:17)
[2024-10-03] MEDS: Sodium Chloride 0.65 % Nasal 44 ML SPRBTL 1 SPRAY NOSTRIL-B (20:19)
[2024-10-03] MEDS: ARIPiprazole 2 MG TABLET PO (22:15)
[2024-10-03] MEDS: Doxepin HCl 10 MG CAPSULE 20 MG PO (22:16)
[2024-10-03] MEDS: hydrOXYzine HCL 10 MG TABLET PO (22:18)
[2024-10-04] MEDS: Sertraline HCL 50 MG TABLET 150 MG PO (08:50)
[2024-10-04] MEDS: Aspirin 81 MG TAB.CHEW PO (08:51)
[2024-10-04] MEDS: Atorvastatin Calcium 40 MG TABLET PO (08:51)
[2024-10-04] MEDS: Clopidogrel Bisulfate 75 MG TABLET PO (08:52)
[2024-10-04 09:08] VITALS: BP 140/92; PULSE 96; TEMP 36.9; O2SAT 98
[2024-10-04 11:40] VITALS: BP 140/88
[2024-10-04] MEDS: cloNIDine HCL 0.1 MG TABLET PO ×2 (11:40→20:17)
[2024-10-04] MEDS: Artificial Tears 15 ML DROPS 1 DROP EYE-BOTH (12:08)
[2024-10-04] MEDS: Sodium Chloride 0.65 % Nasal 44 ML SPRBTL 1 SPRAY NOSTRIL-B (12:08)
--- NOTE | 2024-10-04 16:01 | HO.PSYCHPN ---
Subjective Subjective Date of Service: 10/04/24 Reason For Visit: Depression Interim History: Met with patient; discussed with team Patient reports that today he had a bout of anxiety, mostly around discharge planning which is coming up this week. Patient however understands that anxiety will come but he agrees he is much better able to cope with it. Feels better off the Adderall, which he felt was spiking some anxiety. Trouble sleeping last night but has a new roommate that does not snore and is hopeful Mental Status Exam Mental Status Exam Narrative: Pt is alert and oriented; behavior is cooperative, polite and calm; patient is not in distress; dressed in casual attire with adequate hygiene and grooming; mood is described as anxious and affect congruent, though overall brighter; eye contact appropriate; Speech is normal rate, volume and prosody and not pressured; no psychomotor retardation present; thought process is organized and goal directed; Thought content is on dealing with hopeless feelings, tx; otherwise pertinent to relevant topics and without any delusional content, paranoid ideations or grandiosity; denies any SI/HI. Denies AVH and there is no evidence of perceptual disturbance. Patients insight and judgment fair Diagnostics Vital Signs (24Hr): Vital Signs - 24 hr 10/03/24 19:51 10/03/24 20:00 10/04/24 09:08 Temperature 97.7 F 98.4 F Pulse Rate 86 96 Blood Pressure 125/88 125/88 140/92 H Pulse Oximetry 97 98 Oxygen Delivery Method Room Air 10/04/24 11:40 Temperature Pulse Rate Blood Pressure 140/88 H Pulse Oximetry Oxygen Delivery Method BMI result Body Mass Index 24.9 Labs 09/22/24 12:11 09/22/24 12:11 Medications Medications Current Medications Acetaminophen (Acetaminophen 325 Mg Tablet) 650 mg PO Q6H PRN PRN Reason: Headache/Pain, Scale 1-10 Al Hydroxide/Mg Hydroxide (Magnesium Hydrox/Alum Hydrox 30 Ml Oral.Susp) 30 ml PO Q6H PRN PRN Reason: Heartburn/Nausea Aripiprazole (Aripiprazole 2 Mg Tablet) 2 mg PO BEDTIME [facility] Last Admin: 10/03/24 22:15 Dose: 2 mg Artificial Tears (Artificial Tears 15 Ml Drops) 1 drop EYE-BOTH Q4H PRN PRN Reason: Dry Eyes Last Admin: 10/04/24 12:08 Dose: 1 drop Aspirin (Aspirin 81 Mg Tab.Chew) 81 mg PO DAILY [facility] Last Admin: 10/04/24 08:51 Dose: 81 mg Atorvastatin Calcium (Atorvastatin Calcium 40 Mg Tablet) 40 mg PO DAILY [facility] Last Admin: 10/04/24 08:51 Dose: 40 mg Clonidine HCl (Clonidine Hcl 0.1 Mg Tablet) 0.1 mg PO Q4H PRN; Protocol PRN Reason: moderate anxiety Last Admin: 10/04/24 11:40 Dose: 0.1 mg Clonidine HCl (Clonidine Hcl 0.1 Mg Tablet) 0.1 mg PO BEDTIME [facility]; Protocol Last Admin: 10/03/24 19:51 Dose: 0.1 mg Clopidogrel Bisulfate (Clopidogrel Bisulfate 75 Mg Tablet) 75 mg PO DAILY [facility] Last Admin: 10/04/24 08:52 Dose: 75 mg Doxepin HCl (Doxepin Hcl 10 Mg Capsule) 20 mg PO BEDTIME [facility] Last Admin: 10/03/24 22:16 Dose: 20 mg Hydroxyzine HCl (Hydroxyzine Hcl 10 Mg Tablet) 10 mg PO Q6H PRN PRN Reason: anxiety/restlessness Last Admin: 10/03/24 22:18 Dose: 10 mg Magnesium Hydroxide (Milk Of Magnesia 30 Ml Oral.Susp) 30 ml PO DAILY PRN PRN Reason: Constipation Nicotine Polacrilex (Nicotine Polacrilex 2 Mg Gum) 4 mg BUCCAL Q2H PRN PRN Reason: Nicotine Cravings Ondansetron HCl (Ondansetron Odt 4 Mg Tab.Rapdis) 4 mg TRANSLINGU RQ6H PRN PRN Reason: Nausea Sertraline HCl (Sertraline Hcl 50 Mg Tablet) 150 mg PO DAILY [facility] Last Admin: 10/04/24 08:50 Dose: 150 mg Sodium Chloride (Sodium Chloride 0.65 % Nasal 44 Ml Sprbtl) 1 spray NOSTRIL-B Q1H PRN PRN Reason: dry nares Last Admin: 10/04/24 12:08 Dose: 1 spray Trazodone HCl (Trazodone Hcl 50 Mg Tablet) 50 mg PO BEDTIME MRX1 PRN PRN Reason: Insomnia Last Admin: 10/02/24 03:30 Dose: 50 mg Allergies Allergies Allergy/AdvReac Type Severity Reaction Status Date / Time No Known Allergies Allergy Verified 09/22/24 11:56 Assessment & Plan Assessment & Plan (1) MDD (major depressive disorder), recurrent severe, without psychosis: Status: Acute Code(s): F33.2 - Major depressive disorder, recurrent severe without psychotic features (2) Anxiety: Status: Acute Code(s): F41.9 - Anxiety disorder, unspecified (3) Peyronie's disease: Status: Acute Code(s): N48.6 - Induration penis plastica (4) ADHD: Status: Suspected Code(s): F90.9 - Attention-deficit hyperactivity disorder, unspecified type Plan Patient is a 59-year-old male with history of depression, SAD, alcohol use disorder, history of CVA, Peyronie's disease, chronic back pain who presents for worsening depression and anxiety in the face of multiple psychosocial stressors. Patient reports that in May this past election was when anxiety and depression started. Over the subsequent months, he found his anxiety and depression increasing exacerbated by the cold and dark season which is chronic for him. Compounding these issues are chronic Patient endorses increasing diminished interest in things, low energy, poor appetite and losing weight, trouble sleeping... Patient's anxiety also continued to worsen and he became constantly nauseous... Patient had never been on psychiatric medications before but was started on the antidepressants Zoloft titrated to 100 mg but not helpful; tried mirtazapine for 1 day but not helpful; given clonazepam but patient avoided it due to history of alcohol use. Over the past several weeks, patient's depression worsened and this past week he started thinking that life was not worth living, and though no plans or intent, started becoming desperately hopeless that he would be able to get better. Patient went to an intake for the partial program, expressed suicidal sentiment and was referred to inpatient admission. Patient denies any history of manic episodes or behaviors; history of [id number] bouts of depression, mostly sublinical; denies history of trauma; no AVH. No other history of suicidality. Patient has a long history of on and off alcohol abuse, drinking about 12 beers a day for few months and then being sober for few months; for the past few weeks he has only been drinking 4 beers a day. No other drug abuse history other than cannabis. Formulation/clinical reason: Patient has history of moderate MDD and SAD; likely history of alcohol abuse has masked symptoms of both depression and anxiety. Regarding medications, scenario writer reviewed risks/side effects of various medications which patient understood and agreed to try. Patient has had no benefit from Zoloft 100 mg; he agrees to increase it to 150 and if still no benefit will try different medication. Patient agrees to doxepin q.h.s. for ongoing insomnia; discussed trazodone as an option however patient has Peyronie's disease and while that does not place him at increased risk for priapism, should the rare side effect of priapism occur it could worsen pre-existing Peyronie's disease; patient understands risks and will consider whether not to try it. Also discussed clonidine for anxiety; he agrees to discontinue clonazepam for now as he has hardly been taking the past several weeks. Hospital course: 09/24 Anxiety remains, but pt feels maybe less intense..Clonidine also seemed to help as a Prn. Continues with intermittent hopeless thoughts, asking are the problems insurmountable? but pt talking about it....working on trying to not get overwhelmed... -regarding sleep, feels Doxepin seemed helpful and slept better; wonders if quiet environment, may not have needed help with sleep aide, however will continue and understands Doxepin also helps with anxiety/depression. 09/25/24 discussed adjunctive abilify for rumination/depression add on - patient given print out- 09/26 more organized tp and anxiety down today- but odd s/e of trouble hearing ambient electric as organized radio sound? - - provider will dc clonidine- but continue doxepin and abilify...and let dr weeks decide on forward course 09/27 pt says he's a little better; talking more freely, thinking anxiety is a little less, perhaps due to abilify 2mg. Trouble sleeping but agrees Clonidine helped so agrees to restart. Since feeling a little better, would like to leave meds as they are for now. -sleeping well enough, but groggy next day 09/28 Patient feeling a little better; still anxious but feels he is much more able to cope.? Increased optimism 09/29 continue current treatment plan; clonidine 0.1 mg scheduled q.h.s. with seems to be helping 09/30 continue current treatment plan 10/01 Patient feels that he is much improved. Likes the idea that he can discharge from the unit straight to partial day program and is making plans on how to handle transitioned back home. -Discussed patient's struggles with attention and patient shared that he has a history of ADHD symptoms. Discussed ADHD symptoms further which include history of interrupting, blurting out answers, struggles paying attention when people are talking, struggles with task completion, struggle with organizing things, struggles with sitting down for long-time and very often fidgeting misplacing items at home and work, easily distracted by activity or noise around, talking too.... -Patient did ADHD screen test and scored consistent with high likelihood of ADHD. Patient agreed to trial of Adderall (risks/side effects discussed); scenario writer's opinion that ADHD symptoms treated will significantly improves patient's ability to remain stable -patient also has history of CVA which is another possible contributions to struggles with attention 10/02 Patient reports he is doing well. He says he thinks the Adderall is helping but can not fully tell. He does notice that he is able to read a little better without being distracted (normally has to reread paragraphs) and also that he is able to pay attention to other people talking, however he says the improvements minimal. He agrees to titration 10/03 adderall causing anxiety so wants it to dc 10/04 little anxious today about discharge but coping with it; feels better off the Adderall. Continue with dispo planning Plan: CV Q 15 minute checks DC Adderall Continue Abilify 2mg qhs Continue Zoloft to 150 mg daily Continue doxepin 20 mg q.h.s. for insomnia and help with anxiety/depression Continue clonidine 0.1 mg q.h.s. for insomnia Continue clonidine 0.1 mg q.4 p.r.n. for moderate anxiety Discontinue clonazepam; patient would like to avoid benzodiazepines Substance abuse treatment and risks discussed with patient who at this time patient declines MAT or help with outpt treatment options including programs; instead patient is choosing to work out sobriety on own (and has been cutting down on his own). Patient educated on: diagnosis and medication risk/benefits Informed Consent: understands Reason for continued inpatient stay Substantial Risk for: stable for discharge Time Spent With Patient Time: Total time managing care of this patient today ____ minutes.
[2024-10-04 19:50] VITALS: BP 119/55; PULSE 91; TEMP 36.6; O2SAT 96
[2024-10-04 20:17] VITALS: BP 119/55
[2024-10-04] MEDS: ARIPiprazole 2 MG TABLET PO (20:17)
[2024-10-04] MEDS: Doxepin HCl 10 MG CAPSULE 20 MG PO (23:05)
[2024-10-05 07:55] VITALS: BP 128/81; PULSE 76; RESP 16; TEMP 36.8; O2SAT 97
[2024-10-05] MEDS: Sertraline HCL 50 MG TABLET 150 MG PO (08:25)
[2024-10-05] MEDS: Atorvastatin Calcium 40 MG TABLET PO (08:25)
[2024-10-05] MEDS: Clopidogrel Bisulfate 75 MG TABLET PO (08:25)
[2024-10-05] MEDS: Aspirin 81 MG TAB.CHEW PO (08:25)
[2024-10-05] MEDS: hydrOXYzine HCL 10 MG TABLET PO (11:09)
--- NOTE | 2024-10-05 13:06 | P.PNPSI_ITS ---
Subjective Subjective Date of Service: 10/05/24 Reason For Visit: Depression Interim History: met with patient; discussed with team pt reports he's doing well; anxiety under good control and sleeping well. He is feeling ready for discharge to Partial program tomorrow. Discussed coping strategies. Mental Status Exam Mental Status Exam Narrative: Pt is alert and oriented; behavior is cooperative, polite and calm; patient is not in distress; dressed in casual attire with adequate hygiene and grooming, clean shaven; mood is described as good and affect congruent, brighter, calm; eye contact appropriate; Speech is normal rate, volume and prosody and not pressured; no psychomotor retardation present; thought process is organized and goal directed; Thought content is on dealing with hopeless feelings, tx; otherwise pertinent to relevant topics and without any delusional content, paranoid ideations or grandiosity; denies any SI/HI. Denies AVH and there is no evidence of perceptual disturbance. Patients insight and judgment fair Diagnostics Vital Signs (24Hr): Vital Signs - 24 hr 10/04/24 19:50 10/04/24 20:17 10/05/24 07:55 Temperature 97.8 F 98.3 F Pulse Rate 91 76 Respiratory Rate 16 Blood Pressure 119/55 L 119/55 L 128/81 Pulse Oximetry 96 97 Oxygen Delivery Method Room Air Room Air BMI result Body Mass Index 24.9 Labs 09/22/24 12:11 09/22/24 12:11 Medications Medications Current Medications Acetaminophen (Acetaminophen 325 Mg Tablet) 650 mg PO Q6H PRN PRN Reason: Headache/Pain, Scale 1-10 Al Hydroxide/Mg Hydroxide (Magnesium Hydrox/Alum Hydrox 30 Ml Oral.Susp) 30 ml PO Q6H PRN PRN Reason: Heartburn/Nausea Aripiprazole (Aripiprazole 2 Mg Tablet) 2 mg PO BEDTIME [facility] Last Admin: 10/04/24 20:17 Dose: 2 mg Artificial Tears (Artificial Tears 15 Ml Drops) 1 drop EYE-BOTH Q4H PRN PRN Reason: Dry Eyes Last Admin: 10/04/24 12:08 Dose: 1 drop Aspirin (Aspirin 81 Mg Tab.Chew) 81 mg PO DAILY [facility] Last Admin: 10/05/24 08:25 Dose: 81 mg Atorvastatin Calcium (Atorvastatin Calcium 40 Mg Tablet) 40 mg PO DAILY [facility] Last Admin: 10/05/24 08:25 Dose: 40 mg Clonidine HCl (Clonidine Hcl 0.1 Mg Tablet) 0.1 mg PO Q4H PRN; Protocol PRN Reason: moderate anxiety Last Admin: 10/04/24 11:40 Dose: 0.1 mg Clonidine HCl (Clonidine Hcl 0.1 Mg Tablet) 0.1 mg PO BEDTIME [facility]; Protocol Last Admin: 10/04/24 20:17 Dose: 0.1 mg Clopidogrel Bisulfate (Clopidogrel Bisulfate 75 Mg Tablet) 75 mg PO DAILY [facility] Last Admin: 10/05/24 08:25 Dose: 75 mg Doxepin HCl (Doxepin Hcl 10 Mg Capsule) 20 mg PO BEDTIME [facility] Last Admin: 10/04/24 23:05 Dose: 20 mg Hydroxyzine HCl (Hydroxyzine Hcl 10 Mg Tablet) 10 mg PO Q6H PRN PRN Reason: anxiety/restlessness Last Admin: 10/05/24 11:09 Dose: 10 mg Magnesium Hydroxide (Milk Of Magnesia 30 Ml Oral.Susp) 30 ml PO DAILY PRN PRN Reason: Constipation Nicotine Polacrilex (Nicotine Polacrilex 2 Mg Gum) 4 mg BUCCAL Q2H PRN PRN Reason: Nicotine Cravings Ondansetron HCl (Ondansetron Odt 4 Mg Tab.Rapdis) 4 mg TRANSLINGU RQ6H PRN PRN Reason: Nausea Sertraline HCl (Sertraline Hcl 50 Mg Tablet) 150 mg PO DAILY [facility] Last Admin: 10/05/24 08:25 Dose: 150 mg Sodium Chloride (Sodium Chloride 0.65 % Nasal 44 Ml Sprbtl) 1 spray NOSTRIL-B Q1H PRN PRN Reason: dry nares Last Admin: 10/04/24 12:08 Dose: 1 spray Trazodone HCl (Trazodone Hcl 50 Mg Tablet) 50 mg PO BEDTIME MRX1 PRN PRN Reason: Insomnia Last Admin: 10/02/24 03:30 Dose: 50 mg Allergies Allergies Allergy/AdvReac Type Severity Reaction Status Date / Time No Known Allergies Allergy Verified 09/22/24 11:56 Assessment & Plan Assessment & Plan (1) MDD (major depressive disorder), recurrent severe, without psychosis: Status: Acute Code(s): F33.2 - Major depressive disorder, recurrent severe without psychotic features (2) Anxiety: Status: Acute Code(s): F41.9 - Anxiety disorder, unspecified (3) Peyronie's disease: Status: Acute Code(s): N48.6 - Induration penis plastica (4) ADHD: Status: Suspected Code(s): F90.9 - Attention-deficit hyperactivity disorder, unspecified type Plan Patient is a 59-year-old male with history of depression, SAD, alcohol use disorder, history of CVA, Peyronie's disease, chronic back pain who presents for worsening depression and anxiety in the face of multiple psychosocial stressors. Patient reports that in May this past election was when anxiety and depression started. Over the subsequent months, he found his anxiety and depression increasing exacerbated by the cold and dark season which is chronic for him. Compounding these issues are chronic Patient endorses increasing diminished interest in things, low energy, poor appetite and losing weight, trouble sleeping... Patient's anxiety also continued to worsen and he became constantly nauseous... Patient had never been on psychiatric medications before but was started on the antidepressants Zoloft titrated to 100 mg but not helpful; tried mirtazapine for 1 day but not helpful; given clonazepam but patient avoided it due to history of alcohol use. Over the past several weeks, patient's depression worsened and this past week he started thinking that life was not worth living, and though no plans or intent, started becoming desperately hopeless that he would be able to get better. Patient went to an intake for the partial program, expressed suicidal sentiment and was referred to inpatient admission. Patient denies any history of manic episodes or behaviors; history of [id number] bouts of depression, mostly sublinical; denies history of trauma; no AVH. No other history of suicidality. Patient has a long history of on and off alcohol abuse, drinking about 12 beers a day for few months and then being sober for few months; for the past few weeks he has only been drinking 4 beers a day. No other drug abuse history other than cannabis. Formulation/clinical reason: Patient has history of moderate MDD and SAD; likely history of alcohol abuse has masked symptoms of both depression and anxiety. Regarding medications, sports writer reviewed risks/side effects of various medications which patient understood and agreed to try. Patient has had no benefit from Zoloft 100 mg; he agrees to increase it to 150 and if still no benefit will try different medication. Patient agrees to doxepin q.h.s. for ongoing insomnia; discussed trazodone as an option however patient has Peyronie's disease and while that does not place him at increased risk for priapism, should the rare side effect of priapism occur it could worsen pre-existing Peyronie's disease; patient understands risks and will consider whether not to try it. Also discussed clonidine for anxiety; he agrees to discontinue clonazepam for now as he has hardly been taking the past several weeks. Hospital course: 09/24 Anxiety remains, but pt feels maybe less intense..Clonidine also seemed to help as a Prn. Continues with intermittent hopeless thoughts, asking are the problems insurmountable? but pt talking about it....working on trying to not get overwhelmed... -regarding sleep, feels Doxepin seemed helpful and slept better; wonders if quiet environment, may not have needed help with sleep aide, however will continue and understands Doxepin also helps with anxiety/depression. 09/25/24 discussed adjunctive abilify for rumination/depression add on - patient given print out- 09/26 more organized tp and anxiety down today- but odd s/e of trouble hearing ambient electric as organized radio sound? - - provider will dc clonidine- but continue doxepin and abilify...and let dr weeks decide on forward course 09/27 pt says he's a little better; talking more freely, thinking anxiety is a little less, perhaps due to abilify 2mg. Trouble sleeping but agrees Clonidine helped so agrees to restart. Since feeling a little better, would like to leave meds as they are for now. -sleeping well enough, but groggy next day 09/28 Patient feeling a little better; still anxious but feels he is much more able to cope.? Increased optimism 09/29 continue current treatment plan; clonidine 0.1 mg scheduled q.h.s. with seems to be helping 09/30 continue current treatment plan 10/01 Patient feels that he is much improved. Likes the idea that he can discharge from the unit straight to partial day program and is making plans on how to handle transitioned back home. -Discussed patient's struggles with attention and patient shared that he has a history of ADHD symptoms. Discussed ADHD symptoms further which include history of interrupting, blurting out answers, struggles paying attention when people are talking, struggles with task completion, struggle with organizing things, struggles with sitting down for long-time and very often fidgeting misplacing items at home and work, easily distracted by activity or noise around, talking too.... -Patient did ADHD screen test and scored consistent with high likelihood of ADHD. Patient agreed to trial of Adderall (risks/side effects discussed); sports writer's opinion that ADHD symptoms treated will significantly improves patient's ability to remain stable -patient also has history of CVA which is another possible contributions to struggles with attention 10/02 Patient reports he is doing well. He says he thinks the Adderall is helping but can not fully tell. He does notice that he is able to read a little better without being distracted (normally has to reread paragraphs) and also that he is able to pay attention to other people talking, however he says the improvements minimal. He agrees to titration 10/03 adderall causing anxiety so wants it to dc 10/04 little anxious today about discharge but coping with it; feels better off the Adderall. Continue with dispo planning Plan: CV Q 15 minute checks DC Adderall Continue Abilify 2mg qhs Continue Zoloft to 150 mg daily Continue doxepin 20 mg q.h.s. for insomnia and help with anxiety/depression Continue clonidine 0.1 mg q.h.s. for insomnia Continue clonidine 0.1 mg q.4 p.r.n. for moderate anxiety Discontinue clonazepam; patient would like to avoid benzodiazepines Substance abuse treatment and risks discussed with patient who at this time patient declines MAT or help with outpt treatment options including programs; instead patient is choosing to work out sobriety on own (and has been cutting down on his own). Patient educated on: diagnosis and medication risk/benefits Informed Consent: understands Reason for continued inpatient stay Substantial Risk for: stable for discharge Time Spent With Patient Time: Total time managing care of this patient today ____ minutes.
[2024-10-05 17:36] VITALS: BP 136/89
[2024-10-05] MEDS: cloNIDine HCL 0.1 MG TABLET PO ×2 (17:36→22:04)
[2024-10-05 20:00] VITALS: BP 111/75; PULSE 87; RESP 16; TEMP 36.4; O2SAT 97
[2024-10-05 22:04] VITALS: BP 121/72
[2024-10-05] MEDS: ARIPiprazole 2 MG TABLET PO (22:05)
[2024-10-05] MEDS: Doxepin HCl 10 MG CAPSULE 20 MG PO (22:05)
[2024-10-05] MEDS: Sodium Chloride 0.65 % Nasal 44 ML SPRBTL 1 SPRAY NOSTRIL-B (22:09)
[2024-10-06 07:45] VITALS: BP 132/77; PULSE 79; RESP 16; TEMP 36.9; O2SAT 97
[2024-10-06] MEDS: Sertraline HCL 50 MG TABLET 150 MG PO (08:06)
[2024-10-06] MEDS: Clopidogrel Bisulfate 75 MG TABLET PO (08:06)
[2024-10-06] MEDS: Atorvastatin Calcium 40 MG TABLET PO (08:06)
[2024-10-06] MEDS: Aspirin 81 MG TAB.CHEW PO (08:06)
--- NOTE | 2024-10-06 08:37 | PM.PSYDC ---
DS: Providers Provider Date of Service: 10/06/24 Date of admission: 09/22/24 16:29 Date of discharge: 10/06/24 Primary care physician: Shahzad Santana MD Attending physician on admission: Wyatt Ge Attending physician on discharge: Wyatt Ge DS: Diagnosis Discharge Diagnosis (1) MDD (major depressive disorder), recurrent severe, without psychosis: Status: Acute (2) Anxiety: Status: Acute (3) Peyronie's disease: Status: Acute (4) ADHD: Status: Suspected DS: Medications Discharge Medications Home Medications: Previous Rx's ?Medication ?Instructions ?Recorded aripiprazole 2 mg tablet (Abilify) 2 mg PO BEDTIME 30 days #30 tabs 10/06/24 aspirin 81 mg chewable tablet 81 mg PO DAILY 30 days #30 tabs 10/06/24 atorvastatin 40 mg tablet 40 mg PO DAILY 30 days #30 tabs 10/06/24 clonidine HCl 0.1 mg tablet See Rx Instructions .Route 10/06/24 .COMPLEX PRN moderate anxiety 30 days #90 tabs clopidogrel 75 mg tablet 75 mg PO DAILY 30 days #30 tabs 10/06/24 doxepin 10 mg capsule 20 mg (2 x 10 mg) PO BEDTIME 30 10/06/24 days #60 caps hydroxyzine HCl 10 mg tablet 10 mg PO Q6H PRN 10/06/24 Anxiety/Restlessness 30 days #90 tabs sertraline 100 mg tablet 150 mg (1.5 x 100 mg) PO DAILY 30 10/06/24 days #45 tabs trazodone 50 mg tablet 50 mg PO BEDTIME PRN Insomnia 30 10/06/24 days #30 tabs Mental Status Exam Mental Status Exam Narrative: Pt is alert and oriented; behavior is cooperative, polite and calm; patient is not in distress; dressed in casual attire with adequate hygiene and grooming, clean shaven; mood is described as anxious and affect congruent, though overall brighter and calm; eye contact appropriate; Speech is normal rate, volume and prosody and not pressured; no psychomotor retardation present; thought process is organized and goal directed; Thought content is on dealing with hopeless feelings, tx; otherwise pertinent to relevant topics and without any delusional content, paranoid ideations or grandiosity; denies any SI/HI. Denies AVH and there is no evidence of perceptual disturbance. Patients insight and judgment fair DS: Summary Hospital Course Hospital Course: HPI: Patient is a 59-year-old male with history of depression, SAD, alcohol use disorder, history of CVA, Peyronie's disease, chronic back pain who presents for worsening depression and anxiety in the face of multiple psychosocial stressors. Patient reports that in May this past election was when anxiety and depression started. Over the subsequent months, he found his anxiety and depression increasing exacerbated by the cold and dark season which is chronic for him. Compounding these issues are chronic Patient endorses increasing diminished interest in things, low energy, poor appetite and losing weight, trouble sleeping... Patient's anxiety also continued to worsen and he became constantly nauseous... Patient had never been on psychiatric medications before but was started on the antidepressants Zoloft titrated to 100 mg but not helpful; tried mirtazapine for 1 day but not helpful; given clonazepam but patient avoided it due to history of alcohol use. Over the past several weeks, patient's depression worsened and this past week he started thinking that life was not worth living, and though no plans or intent, started becoming desperately hopeless that he would be able to get better. Patient went to an intake for the partial program, expressed suicidal sentiment and was referred to inpatient admission. Patient denies any history of manic episodes or behaviors; history of [id number] bouts of depression, mostly sublinical; denies history of trauma; no AVH. No other history of suicidality. Patient has a long history of on and off alcohol abuse, drinking about 12 beers a day for few months and then being sober for few months; for the past few weeks he has only been drinking 4 beers a day. No other drug abuse history other than cannabis. Formulation/clinical reason: Patient has history of moderate MDD and SAD; likely history of alcohol abuse has masked symptoms of both depression and anxiety. Regarding medications, movie writer reviewed risks/side effects of various medications which patient understood and agreed to try. Patient has had no benefit from Zoloft 100 mg; he agrees to increase it to 150 and if still no benefit will try different medication. Patient agrees to doxepin q.h.s. for ongoing insomnia; discussed trazodone as an option, risks/side effects in light of Peyronie's disease and while that does not place him at increased risk for priapism, should the rare side effect of priapism occur it could worsen pre-existing Peyronie's disease; patient understands risks and decided to take it intermittently. Also discussed clonidine for anxiety; he agrees to discontinue clonazepam for now as he has hardly been taking the past several weeks. Hospital course: On admission, patient was quite depressed and very anxious; no active SI but significant hopeless feelings and pessimistic that he would get better. That said, patient was very open to treatment, wanting medication management and to engage in therapy. He was forthcoming in 1 on 1 sessions and attended groups. Patient's Zoloft was titrated; he benefited from p.r.n. clonidine and hydroxyzine. Doxepin was added for help with insomnia and also anxiety/depression; eventually he was also started on low-dose Abilify 2 mg. With this medication regimen and patient is engagement in therapeutic milieu, groups and one-to-one sessions, patient steadily improved. Depression fully abated and SI remained fully resolved; anxiety was significantly reduced and though it would come and go, patient felt much more capable of coping with it and demonstrated his ability to deal with it, process his anxious thoughts and put them into perspective. Patient had history of drinking which he had been working on cutting down; at this time patient did not want MAT or a substance abuse program but wanted to continue working on his sobriety on his own. Patient had a brief trial of Adderall for ADHD symptoms (hx of symptoms and +screening test) however found it counterproductive as it exacerbated anxiety and it was not continued. Patient discussed returning to the partial day program which he was about to start before this admission and agreed it would be a good transitioned from the inpatient unit. Patient remained in good behavioral and impulse control throughout his time in the unit, appropriate with peers and staff and engaged. He was sleeping and eating well and optimistic about remaining stable and continuing to pursue treatment as an outpatient. Patient did get anxious on the day of discharge with the transition of going to partial and then home however was able to talk through his feelings and stayed committed to the treatment plan, understanding that working through this anxiety was just part of his treatment. Patient was not in imminent risk for harm to self or others and appropriate to return to the community for treatment. Medications: Started Abilify 2mg qhs Increased Zoloft to 150 mg daily Started doxepin 20 mg q.h.s. for insomnia and help with anxiety/depression Started clonidine 0.1 mg q.h.s. for insomnia and as a p.r.n. for anxiety Discontinued clonazepam Time spent discussing smoking cessation with patient: 3 to 10 minutes Status at Discharge Functional status at discharge: independent ambulation Overall status at discharge: patient is back to baseline Time Spent with Patient Time attestation: Total time managing care of this patient today _45___ minutes. Time spent: Greater than 30 minutes Specific discharge activities: Meeting with patient; discussing with team; charting; prescriptions Discharge Plan Discharge Anticipated Discharge Date/Time: 10/06/24 08:30 Patient Disposition: Home, Self-Care Discharge Diagnosis: MDD, recurrent, severe w/out psychosis, in full remission; BEKAH Referrals: [facility] Partial Hospitalization Intake [Other] - 10/06/24 11:[address] [facility] Psychiatry with Dr. Pitts [Other] - 10/13/24 3:00 pm (This is an in person visit. ) Shahzad Santana MD [Primary Care Provider] - 10/11/24 10:00 am (In office appointment . ) Discharge Medications: New clonidine HCl 0.1 mg Tablet See Rx Instructions .ROUTE .COMPLEX PRN (Reason: moderate anxiety) 30 Days Qty: 90 0RF Protocol: Hold for SBP< HOLD for SBP < : 90 Rx Instructions: Take 1 tablet at bedtime; you may take another tablet 2 times a day as needed for anxiety aripiprazole [Abilify] 2 mg Tablet 2 mg PO BEDTIME 30 Days Qty: 30 0RF doxepin 10 mg Capsule 20 mg PO BEDTIME 30 Days Qty: 60 0RF hydroxyzine HCl 10 mg Tablet 10 mg PO Q6H PRN (Reason: Anxiety/Restlessness) 30 Days Qty: 90 0RF trazodone 50 mg Tablet 50 mg PO BEDTIME PRN (Reason: Insomnia) 30 Days Qty: 30 0RF Continued atorvastatin 40 mg tablet 40 mg PO DAILY 30 Days Qty: 30 0RF clopidogrel 75 mg tablet 75 mg PO DAILY 30 Days Qty: 30 0RF aspirin 81 mg Tablet,Chewable 81 mg PO DAILY 30 Days Qty: 30 0RF Changed sertraline 100 mg tablet 150 mg PO DAILY 30 Days Qty: 45 0RF Discontinued clonazepam 0.5 mg tablet 0.5 mg PO BID No Action gabapentin 300 mg capsule 300 mg PO BID Qty: 20 0RF Discharge Orders: Discharge Order (Routine); Ordered 10/06/24 Ordered By: Wyatt Ge Diet: Regular diet Activity on Discharge: As tolerated Stand Alone Forms: Patient Portal Discharge page, Community Support Print Language: Romanian Care Plan Goals: Maintain mood and safe behaviors Take medications as prescribed Continue to pursue sobriety Practice coping skills Continue with outpatient providers and reach out to them as needed Health Concerns: Mood stability and behaviors Sobriety History of CVA History of elevated cholesterol Plan of Treatment: Follow up with your PCP, psychiatric provider and other outpatient providers regarding above concerns Take medications as prescribed Assessment: Risk assessment at time of discharge:? Patient was interviewed prior to discharge and found to be fully oriented and without any SI or HI. Patient has improved insight and judgment and wants to continue treatment. Patient is not in imminent risk of harm to self or others and has a safety plan that includes presenting to the closest ER or calling 911 if feeling unsafe.? Patient has been observed closely by nursing and unit staff throughout admission; patient has not engaged in any behaviors that suggest dangerousness to self or others and has demonstrated appropriate behaviors and impulse control Discharge Date/Time: 10/06/24 10:53
== END 2024-10-06 10:53 | disposition home or self-care (01) | DRG 751 ==
LOC: HO.ED 15:45 → HO.PM5 16:39 → HO.ISO 10-03 22:41 → HO.PM5 10-03 22:42
PROVIDERS: Clinical Nurse Specialist Psychiatric/Mental Health, Adult; Physician Assistant; Physician Assistant Medical; Admitting Provider Psychiatry & Neurology Psychiatry; Emergency Provider Emergency Medicine Emergency Medical Services; PCP Internal Medicine; Visit Provider Psychiatry & Neurology Psychiatry
DX: F33.2 Major depressive disorder, recurrent severe without psychotic features (principal); F41.9 Anxiety disorder, unspecified; F90.9 Attention-deficit hyperactivity disorder, unspecified type; N48.6 Induration penis plastica; Z79.02 Long term (current) use of antithrombotics/antiplatelets; Z87.891 Personal history of nicotine dependence; Z79.82 Long term (current) use of aspirin; Z79.899 Other long term (current) drug therapy
CPT/HCPCS: 36415; 80053; 80061; 80143; 80179; 80307; 81001; 82607; 82746; 83036; 83735; 84439; 84443; 85025; 93005; 99285; S9485

== ENCOUNTER → 2024-09-22 14:18 | Outpatient (BNV) | payer BC, SELFPAY | PROVIDERS: Admitting Provider Psychiatry & Neurology Psychiatry; Emergency Provider Emergency Medicine Emergency Medical Services; PCP Internal Medicine; Visit Provider Internal Medicine | DX: Z13.30 Encounter for screening examination for mental health and behavioral disorders, unspecified (principal) | CPT/HCPCS: 93010 ==

== ENCOUNTER → 2024-09-22 16:29 | Outpatient (BNV) | payer BC, SELFPAY | PROVIDERS: Admitting Provider Psychiatry & Neurology Psychiatry; Emergency Provider Emergency Medicine Emergency Medical Services; PCP Internal Medicine; Visit Provider Psychiatry & Neurology Psychiatry | DX: F33.2 Major depressive disorder, recurrent severe without psychotic features (principal); F41.9 Anxiety disorder, unspecified; N48.6 Induration penis plastica | CPT/HCPCS: 90792 ==

== ENCOUNTER 2024-10-20 12:18 | Outpatient (REF) | payer BC, SELFPAY ==
[2024-10-20 13:53] LABS: Magnesium 2.3 mg/dL (1.6-2.6)
[2024-10-20 14:08] LABS: Vitamin D 25-OH Total 23.5 ng/mL (>30)
[2024-10-21 10:15] LABS: Prolactin 4.5 ng/mL (2.0-18.0)
[2024-10-21 10:23] LABS: Triiodothyronine T3 Free 3.1 pg/mL (2.3-4.2); Triiodothyronine T3 Total 78 ng/dL (76-181)
[2024-10-21 17:39] LABS: Homocysteine 8.2 umol/L (<11.4)
[2024-10-23 02:03] LABS: Zinc 73 mcg/dL (60-130)
[2024-10-23 06:18] LABS: Methylmalonic Acid 121 nmol/L (55-335)
[2024-10-24 16:19] LABS: Triiodothyronine T3 Reverse 13 ng/dL (8-25)
[2024-10-26 09:49] LABS: Testosterone, Free 59.9 pg/mL (35.0-155.0); Testosterone, Total 476 ng/dL (250-1100)
[2024-10-30 15:59] LABS: Vitamin B1 19 nmol/L (8-30)
== END 2024-10-20 12:19 | disposition home or self-care (01) ==
LOC: HO.LAB 12:18
PROVIDERS: PCP Internal Medicine; Visit Provider Psychiatry & Neurology Psychiatry
DX: F33.2 Major depressive disorder, recurrent severe without psychotic features (principal); F41.1 Generalized anxiety disorder; Z13.6 Encounter for screening for cardiovascular disorders
CPT/HCPCS: 36415; 82306; 83090; 83735; 83921; 84146; 84402; 84403; 84425; 84480; 84481; 84482; 84630

== ENCOUNTER 2024-10-28 09:00 | Outpatient (RCR) | payer BC, SELFPAY ==
--- NOTE | 2024-09-22 12:12 | HO.PHP ---
This parts data writer met with the patient this morning 09/22/2024 for the purpose of completing an intake assessment for [facility] treatment. The patient presented with a flat affect,depressed mood,he stated he felt hopeless,he was tearful and voiced suicidal ideation without a plan or intent. The patient appeared that he was experiencing a crisis. This parts data writer recommended that the patient meet with the CARE team at [facility] ED,the patient agreed. This parts data writer notified the PHP pension manager and the CARE steam cleaner of the situation and that this parts data writer will walk the patient to the ED for a crisis assessment. This parts data writer walked the patient to the ED where he met with triage immediately. This parts data writer informed the patient that he may return to [facility] if he chooses. Marli Alexis LM
[2024-10-07 09:42] VITALS: BMI 25.0
[2024-10-07 09:43] VITALS: BP 100/72; PULSE 92; TEMP 37.3
--- NOTE | 2024-10-07 11:59 | PC.ADMIT ---
Patient is a 59 year old single male who initially met with [facility] staff for an intake appointment however during the appointment patient presented with severe depression thus he was evaluated by [facility] crisis and was subsequently admitted to [facility] inpatient behavioral health unit. Patient reports he retired 5 years ago. Reports no day structure. Feels isolated from others. Prior to hospitalization patient stated, Ran out of hope and options and how to fix it myself. I guess you could say rock bottom out of control and unsafe feeling. Marli escorted me to the ER . When asked if hospitalization was helpful patient stated, I loved hospitalization it was great there was people and structure and did not have to organize my meals . Patient has a history of binge drinking alcohol. He stated the last time he drank alcohol was in July 2024. He states he will go without alcohol for months then he will drink 12 pack of beer daily for months and this has been his drinking pattern. Patient also stated when he was drinking he would also use Marijuana one gram daily for the past two years. Patient is alert and oriented x4. He is calm and cooperative. He presented with depressed mood and anxious affect. He denied SI, no HI. He reports he retired 5 years ago and has no day structure. medications reconciled with patient and patient's pharmacy. He reports taking medications as prescribed.
--- NOTE | 2024-10-07 12:44 | P.HPPSP_ITS ---
HPI Date of Service: 10/07/24 Chief Complaint: depression,anxiety Sources of Information: patient interviewed, chart reviewed and crisis/core team assessment reviewed Additional Sources of Information: Patient prefers to go by ?Wally?. HPI Narrative: Patient is a 59 yo male with history of depression, SAD, AUD, history of CVA, Peyronie's disease, chronic back pain who is being stepped down from [facility] on M5 after an almost 2-week hospital admissions for worsening depression and anxiety in the face of multiple psychosocial stressors. Patient reports symptoms worsened following the recent presidential election last May. Past Psychiatric History: One psychiatric admission when patient was 18 years old No history of suicidality, SI/SA No history of psychiatric medications other than recent trials of Zoloft and mirtazapine CURRENT MEDICATIONS: Abilify 2 mg daily Zoloft 150 mg daily Trazodone 50 mg q.h.s. p.r.n. sleep Doxepin 20 mg q.h.s. Clonidine 0.1 mg p.r.n. anxiety hydroxyzine 10 mg q.6 hours Clopidogrel 75 mg daily Atorvastatin 40 mg daily Aspirin 81 mg daily? 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 Calm, cooperative, engaged. Unkempt. Hygiene intact. No psychomotor agitation or neurovegetative retardation. Eye contact maintained. Mood anxious,depressed, affect blunted, mood congruent. Speech normal. Thought process linear, coherent. Thought content related to stressors, denies any hopelessness or SI. Denies any aggressive ideation or HI. No paranoia or delusional content elicited. No evidence of psychosis. Insight and judgment - fair but adequate. Assessment & Plan Assessment & Plan (1) MDD (major depressive disorder), recurrent severe, without psychosis: Status: Acute Code(s): F33.2 - Major depressive disorder, recurrent severe without psychotic features (2) BEKAH (generalized anxiety disorder): Status: Acute Code(s): F41.1 - Generalized anxiety disorder (3) Alcohol use disorder: Status: Acute Code(s): F10.90 - Alcohol use, unspecified, uncomplicated (4) Cannabis use disorder: Status: Acute Code(s): F12.90 - Cannabis use, unspecified, uncomplicated Plan Admit to [facility] VS reviewed: afebrile, BP 100/72;?92 bpm Start gabapentin 300 mg b.i.d. to t.i.d. continue other regular medications Abilify 2 mg daily Zoloft 150 mg daily Trazodone 50 mg q.h.s. p.r.n. sleep Doxepin 20 mg q.h.s. Clonidine 0.1 mg p.r.n. anxiety hydroxyzine 10 mg q.6 hours Clopidogrel 75 mg daily Atorvastatin 40 mg daily Aspirin 81 mg daily? Routine lab work ordered as indicated EKG, routine for baseline QTc for medication considerations as indicated UDS as indicated [facility] reviewed Continue to monitor as per protocol Patient educated on: diagnosis, medication risk/benefits and substance abuse Informed Consent: understands Reason for continued partial hosp. stay Substantial Risk for: inability to function and med/psych decompensation Certification I certify that partial hospital treatment is medically necessary due to the symptoms and problems resulting from the patient's mental illness and the failure to treat the patient at the partial hospital level of care would likely result in the patient requiring inpatient psychiatric care which could not be prevented at a less intensive level of care. Time Spent With Patient Time: Total time managing care of this patient today __90__ minutes.
--- NOTE | 2024-10-07 15:52 | HO.PHP ---
Client's case has been opened and reviewed in team.
--- NOTE | 2024-10-15 13:49 | P.PNPSP_ITS ---
Subjective Subjective Date of Service: 10/15/24 Reason For Visit: depression,anxiety Diagnostics Vital Signs (24Hr): BMI result Body Mass Index 25.0 Assessment & Plan Assessment & Plan (1) MDD (major depressive disorder), recurrent severe, without psychosis: Status: Acute Code(s): F33.2 - Major depressive disorder, recurrent severe without psychotic features (2) BEKAH (generalized anxiety disorder): Status: Acute Code(s): F41.1 - Generalized anxiety disorder (3) Alcohol use disorder: Status: Acute Code(s): F10.90 - Alcohol use, unspecified, uncomplicated (4) Cannabis use disorder: Status: Acute Code(s): F12.90 - Cannabis use, unspecified, uncomplicated Plan Admit to [facility] VS reviewed: afebrile, BP 100/72;?92 bpm Start gabapentin 300 mg b.i.d. to t.i.d. continue other regular medications Abilify 2 mg daily Zoloft 150 mg daily Trazodone 50 mg q.h.s. p.r.n. sleep Doxepin 20 mg q.h.s. Clonidine 0.1 mg p.r.n. anxiety hydroxyzine 10 mg q.6 hours Clopidogrel 75 mg daily Atorvastatin 40 mg daily Aspirin 81 mg daily? Routine lab work ordered as indicated EKG, routine for baseline QTc for medication considerations as indicated UDS as indicated [facility] reviewed Continue to monitor as per protocol Certification I certify that partial hospital treatment is medically necessary due to the symptoms and problems resulting from the patient's mental illness and the failure to treat the patient at the partial hospital level of care would likely result in the patient requiring inpatient psychiatric care which could not be prevented at a less intensive level of care. Total time managing care of this patient today ____ minutes. Discharge Plan Discharge Attending provider: Shakira Lu Medications: New gabapentin 300 mg capsule 300 mg PO BID Qty: 20 0RF propranolol 10 mg tablet 10 - 20 mg PO TID PRN (Reason: anxiety) Qty: 30 0RF lorazepam 0.5 mg tablet 0.5 mg PO DAILY PRN (Reason: anxiety, panic attacks) Qty: 10 0RF Continued clonidine HCl 0.1 mg Tablet See Rx Instructions .ROUTE .COMPLEX PRN (Reason: moderate anxiety) 30 Days Qty: 90 0RF Protocol: Hold for SBP< HOLD for SBP < : 90 Rx Instructions: Take 1 tablet at bedtime; you may take another tablet 2 times a day as needed for anxiety aripiprazole [Abilify] 2 mg Tablet 2 mg PO BEDTIME 30 Days Qty: 30 0RF doxepin 10 mg Capsule 20 mg PO BEDTIME 30 Days Qty: 60 0RF hydroxyzine HCl 10 mg Tablet 10 mg PO Q6H PRN (Reason: Anxiety/Restlessness) 30 Days Qty: 90 0RF atorvastatin 40 mg tablet 40 mg PO DAILY 30 Days Qty: 30 0RF sertraline 100 mg tablet 150 mg PO DAILY 30 Days Qty: 45 0RF clopidogrel 75 mg tablet 75 mg PO DAILY 30 Days Qty: 30 0RF aspirin 81 mg Tablet,Chewable 81 mg PO DAILY 30 Days Qty: 30 0RF No Action trazodone 50 mg Tablet 50 mg PO BEDTIME PRN (Reason: Insomnia) 30 Days Qty: 30 0RF Print Language: [place]
--- NOTE | 2024-10-20 11:54 | P.PNPSP_ITS ---
Subjective Subjective Date of Service: 10/19/24 Reason For Visit: depression,anxiety Diagnostics Vital Signs (24Hr): BMI result Body Mass Index 25.0 Assessment & Plan Certification I certify that partial hospital treatment is medically necessary due to the symptoms and problems resulting from the patient's mental illness and the failure to treat the patient at the partial hospital level of care would likely result in the patient requiring inpatient psychiatric care which could not be prevented at a less intensive level of care. Total time managing care of this patient today ____ minutes. Discharge Plan Discharge Attending provider: Shakira Lu Medications: New gabapentin 300 mg capsule 300 mg PO BID Qty: 20 0RF propranolol 10 mg tablet 10 - 20 mg PO TID PRN (Reason: anxiety) Qty: 30 0RF lorazepam 0.5 mg tablet 0.5 mg PO DAILY PRN (Reason: anxiety, panic attacks) Qty: 10 0RF gabapentin 600 mg tablet 600 mg PO BID Qty: 30 0RF buspirone 10 mg tablet 10 mg PO TID Qty: 30 0RF Continued clonidine HCl 0.1 mg Tablet See Rx Instructions .ROUTE .COMPLEX PRN (Reason: moderate anxiety) 30 Days Qty: 90 0RF Protocol: Hold for SBP< HOLD for SBP < : 90 Rx Instructions: Take 1 tablet at bedtime; you may take another tablet 2 times a day as needed for anxiety aripiprazole [Abilify] 2 mg Tablet 2 mg PO BEDTIME 30 Days Qty: 30 0RF hydroxyzine HCl 10 mg Tablet 10 mg PO Q6H PRN (Reason: Anxiety/Restlessness) 30 Days Qty: 90 0RF atorvastatin 40 mg tablet 40 mg PO DAILY 30 Days Qty: 30 0RF sertraline 100 mg tablet 150 mg PO DAILY 30 Days Qty: 45 0RF clopidogrel 75 mg tablet 75 mg PO DAILY 30 Days Qty: 30 0RF aspirin 81 mg Tablet,Chewable 81 mg PO DAILY 30 Days Qty: 30 0RF Discontinued doxepin 10 mg Capsule 20 mg PO BEDTIME 30 Days Qty: 60 0RF trazodone 50 mg Tablet 50 mg PO BEDTIME PRN (Reason: Insomnia) 30 Days Qty: 30 0RF Print Language: Cong[place]ese
--- NOTE | 2024-10-26 07:31 | HO.PHP ---
[facility] staff Admin, Laura, informed the team that Van won't be in attendance to program today due to being sick. Van disclosed no safety concerns.
--- NOTE | 2024-10-28 15:53 | HO.PHP ---
PHP staff member [facility]
--- NOTE | 2024-10-28 23:08 | HO.PHPPROGNO ---
Subjective Subjective Date of Service: 10/28/24 Reason For Visit: depression,anxiety Diagnostics Vital Signs (24Hr): BMI result Body Mass Index 25.0 Assessment & Plan Certification I certify that partial hospital treatment is medically necessary due to the symptoms and problems resulting from the patient's mental illness and the failure to treat the patient at the partial hospital level of care would likely result in the patient requiring inpatient psychiatric care which could not be prevented at a less intensive level of care. Total time managing care of this patient today ____ minutes. Discharge Plan Discharge Attending provider: Shakira Lu Medications: New lorazepam 0.5 mg tablet 0.5 mg PO DAILY PRN (Reason: anxiety, panic attacks) Qty: 10 0RF hydroxyzine HCl 25 mg tablet 25 mg PO BID PRN (Reason: sleep, anxiety) Qty: 60 0RF Continued atorvastatin 40 mg tablet 40 mg PO DAILY 30 Days Qty: 30 0RF clopidogrel 75 mg tablet 75 mg PO DAILY 30 Days Qty: 30 0RF aspirin 81 mg Tablet,Chewable 81 mg PO DAILY 30 Days Qty: 30 0RF sertraline 100 mg tablet 150 mg PO DAILY 30 Days Qty: 45 0RF buspirone 10 mg tablet 10 mg PO TID Qty: 90 0RF mirtazapine 15 mg tablet 15 mg PO BEDTIME Qty: 30 0RF aripiprazole [Abilify] 2 mg Tablet 2 mg PO BEDTIME 30 Days Qty: 30 0RF Changed clonidine HCl 0.1 mg Tablet 0.1 mg PO BEDTIME PRN (Reason: moderate anxiety) Qty: 30 0RF Protocol: Hold for SBP< HOLD for SBP < : 90 Rx Instructions: do not take within 3-4 hrs of propranolol propranolol 10 mg tablet 10 mg PO TID Qty: 90 0RF gabapentin 300 mg capsule 300 mg PO TID Qty: 90 0RF Discontinued doxepin 10 mg Capsule 20 mg PO BEDTIME 30 Days Qty: 60 0RF hydroxyzine HCl 10 mg Tablet 10 mg PO Q6H PRN (Reason: Anxiety/Restlessness) 30 Days Qty: 90 0RF trazodone 50 mg Tablet 50 mg PO BEDTIME PRN (Reason: Insomnia) 30 Days Qty: 30 0RF Patient Education: Depression (ED), Depression (DC), Anxiety (ED) Print Language: Unable To Collect
== END 2024-10-28 23:59 | disposition home or self-care (01) ==
LOC: HO.PHPA 09:00
PROVIDERS: Visit Provider Psychiatry & Neurology Psychiatry
DX: F33.2 Major depressive disorder, recurrent severe without psychotic features (principal); F41.1 Generalized anxiety disorder; F10.90 Alcohol use, unspecified, uncomplicated; F12.90 Cannabis use, unspecified, uncomplicated; Z79.899 Other long term (current) drug therapy
CPT/HCPCS: 90791; 90853

== ENCOUNTER → 2024-10-28 09:00 | Outpatient (BNV) | payer BC, SELFPAY | PROVIDERS: Visit Provider Psychiatry & Neurology Psychiatry | DX: F33.2 Major depressive disorder, recurrent severe without psychotic features (principal); F41.1 Generalized anxiety disorder; F10.90 Alcohol use, unspecified, uncomplicated; F12.90 Cannabis use, unspecified, uncomplicated | CPT/HCPCS: 99499 ==